=== PATIENT | male | born 1985 | race Caucasian/White ===

== ENCOUNTER → 2020-12-13 09:43 | Outpatient (REF) | payer OTHER, SELFPAY ==
--- NOTE | 2020-12-13 09:49 | CA_ITS ---
Acquisition Time: 2020-12-13 10:04:13 Total Exercise Time: 00:09:05 Test Indications: Chest Pain Medications: LISINOPRIL METFORMIN SIMVASTATIN JANUVIA TESTOSTERONE Protocol: PATRICIA Max HR: 171 BPM 91% of Pred: 186 BPM Max BP: 158/086 mmHG Max Work Load: 10.2 METS Exercise stress test with exercise 9 min 5 sec of Patricia protocol, without anginal symptoms, without arrythmia, with normotensive response to exercise, with T wave abnormality at baseline, with EKG changes that are equivocal for ischemia during exercise, recovery: horizontal ST with borderline depression/ T wave inversion inferiorly and V4-V6. Test reviewed with Dr Gómez. Message sent to Dr Maldonado. Recommend stress echocardiogram for further evaluation for ischemia. Referred By: Ashley Maldonado Overread By: PHI KRISHNAMURTHY
== END ==
LOC: HO.CARD 09:43
PROVIDERS: Visit Provider Internal Medicine
DX: R07.9 Chest pain, unspecified (principal)
CPT/HCPCS: 93017

== ENCOUNTER → 2021-01-27 10:51 | Outpatient (REF) | payer OTHER, SELFPAY ==
--- NOTE | 2021-01-27 10:54 | CA_ITS ---
Acquisition Time: 2021-01-27 10:52:14 Total Exercise Time: 00:09:16 Test Indications: Chest Pain Medications: LISINOPRIL METFORMIN SIMVASTATIN JANUVIA TESRTOSTERONE Protocol: PATRICIA Max HR: 171 BPM 91% of Pred: 186 BPM Max BP: 156/070 mmHG Max Work Load: 10.1 METS Exercise stress test with exercise 9 min 16 sec of Patricia protocol ( stage 3 held), without anginal symptoms, without arrythma, with normotensive response to exercise, with borderline EKG changes : horizontal ST with mild depression inferiorly and V3-V6 in setting of baseline T wave abnormality. Echo images obtained by [employer] at rest and immediately post peak exercise. Definity contrast used. Test reviewed with Dr Babcock. Referred By: Ashley Maldonado Overread By: PHI KRISHNAMURTHY
== END ==
LOC: HO.CARD 10:51
PROVIDERS: Visit Provider Internal Medicine
DX: R07.9 Chest pain, unspecified (principal)
CPT/HCPCS: 93350; Q9957

== ENCOUNTER 2021-08-11 09:38 | Outpatient (REF) | payer OTHER, SELFPAY ==
[2021-08-11 10:03] LABS: MANUAL DIFF FLAG NO
[2021-08-11 10:22] LABS: Basophils Percent Auto 0.5 % (0-2); Eosinophils Absolute Auto 0.2 X10*3/uL (0.0-0.4); Eosinophils Percent Auto 1.9 % (0-4); Hematocrit 42.6 % (42.0-52.0); Hemoglobin 14.2 g/dl (14.0-18.0); Imm Gran Abs Auto 0.02 X10*3/uL (0.00-0.03); Imm Gran Pct Auto 0.3 % (0.0-0.4); Lymphocytes Absolute Auto 2.6 X10*3/uL (1.2-4.9); Lymphocytes Percent Auto 32.2 % (20-40); Mean Corpuscular HGB Conc 33.3 g/dl (31.0-36.0); Mean Corpuscular Hemoglobin 29.6 pg (27.0-33.0); Mean Corpuscular Volume 88.9 fL (80.0-98.0); Mean Platelet Volume 10.3 fL (9.4-12.4); Monocytes Absolute Auto 0.6 X10*3/uL (0.1-1.2); Monocytes Percent Auto 8.1 % (2-11); Neutrophils Absolute Auto 4.5 x10*3/uL (2.0-8.3); Platelet Count 272 X10*3/uL (160-400); Red Blood Count 4.79 X10*6/uL (4.60-5.80); Red Cell Distribution Width 12.2 % (11.0-16.0); White Blood Count 7.9 X10*3/uL (4.8-10.8)
[2021-08-11 11:05] LABS: Alanine Aminotransferase 35 U/L (0-40); Albumin Level 4.6 g/dL (3.5-5.0); Alkaline Phosphatase 106 U/L (39-117); Anion Gap 13 (12-20); Aspartate Amino Transferase 29 U/L (5-37); Bilirubin Total 0.5 mg/dL (0.0-1.0); Blood Urea Nitrogen 9 mg/dL (9-16); Calcium 9.7 mg/dL (8.4-10.2); Carbon Dioxide 26 mmol/L (22-29); Chloride 104 mmol/L (96-108); Cholesterol 140 mg/dL; Estimated Glomerular Filt Rate > 60; Glucose Random 114 mg/dL (60-115); HDL Cholesterol 37 mg/dL; LDL Cholesterol Calculated 84 mg/dl; Potassium 5.1 mmol/L (3.3-5.1); Sodium 138 mmol/L (135-145); Total Protein 7.8 g/dL (6.5-8.0); Triglycerides 95 mg/dL
[2021-08-11 11:15] LABS: Creatinine Urine 150.19 mg/dL; Microalbum/Creatinine Ratio Ur 5.3 ug/mg cr
[2021-08-11 11:34] LABS: Free T4 (Free Thyroxine) 0.92 ng/dL (0.71-1.85); Thyroid Stimulating Hormone 1.24 uIU/mL (0.32-4.0)
[2021-08-11 11:45] LABS: Folate 18.6 ng/mL (> or = 4.0); Vitamin B12 219 pg/mL (200-900)
[2021-08-11 12:10] LABS: Vitamin D 25-OH Total 52.3 ng/mL (>30)
== END 2021-08-11 09:39 | disposition home or self-care (01) ==
LOC: HO.LAB 09:38
PROVIDERS: PCP Internal Medicine; Visit Provider Internal Medicine
DX: E11.65 Type 2 diabetes mellitus with hyperglycemia (principal); E78.00 Pure hypercholesterolemia, unspecified
CPT/HCPCS: 36415; 80053; 80061; 82043; 82306; 82607; 82746; 84439; 84443; 85025

== ENCOUNTER 2022-02-16 11:00 | Outpatient (RCR) | payer OTHER, SELFPAY ==
--- NOTE | 2022-01-19 14:05 | MHC.PT.EP ---
[facility] [place] [facility] [place] [facility] [place] [facility] [address] Gillian Kinney [address] [phone] F: [phone] F: [phone] F: [phone] F: [phone] Physical Therapy Plan of Care Date of Evaluation: Date of Surgery: Diagnosis: LBP Assessment: Patient presents with chronic LBP from poor posturing and positioning from repetitive bending and lifting at work. He presents with reduced lumbar and hip AROM, weakness in glutes and abdominals/core and exhibits poor body mechanics with squatting and lifting. He will benefit from skilled physical therapy involving manual therapy, therapeutic exercise and activities and education and practice of proper techniques to avoid further injury and reduce symptoms during work tasks. Frequency and Duration: The patient will be seen 1x/week for 4 weeks Short Term Goals: 2 weeks Patient presents with increased hip glute med strength 4+/5 Patient demonstrates proper squat/hip hinge technique independently to improve form with bending at work. Javascript Programmer Goals: 3 weeks Patient exhibits ability to perform 4 to waist lift 40lbs with proper body mechanics. Patient presents with increased abdominal/TA strength 5/5 to improve lumbar stabilization for lifting tasks. Treatment Plan: Modalities to reduce pain, spasms and effusion. Manual therapy to restore motion and function. Therapeutic exercise to improve strength and flexibility. Neuromuscular re-education for posture and balance. Therapeutic activities to return to functional activities of daily living. Electronically signed by: Chela Phillips PT Please sign and return to therapist. Thank you for your referral.
--- NOTE | 2022-03-21 14:45 | MHC.PT.DC ---
[facility] [place] [facility] [place] [facility] [place] [facility] [address] Gillian Kinney [address] [phone] F: [phone] F: [phone] F: [phone] F: [phone] Physical Therapy Discharge Report Diagnosis: LBP Date of Surgery: Date of Evaluation: 01/19/22 Date of Discharge: 03/21/22 Treatments to Date: 3 Cancellations to Date: 0 No Shows to Date: 0 Discharge Status: Independent with HEP Visit Non-compliance Discharge Summary: Pt did not f/u with final visits and has no showed last 3 visits. D/c at this time. Electronically signed by: Chela Phillips PT Please sign and return to therapist. Thank you for your referral.
== END 2022-03-21 14:45 | disposition home or self-care (01) ==
LOC: HO.PT 11:00
PROVIDERS: PCP Internal Medicine; Visit Provider Nurse Practitioner Family
DX: M54.50 Low back pain, unspecified (principal)
CPT/HCPCS: 97110; 97140; 97161; 97530

== ENCOUNTER 2022-07-26 09:43 | Outpatient (REF) | payer OTHER, SELFPAY ==
[2022-07-26 10:06] LABS: MANUAL DIFF FLAG NO
[2022-07-26 10:45] LABS: Basophils Percent Auto 0.6 % (0-2); Eosinophils Absolute Auto 0.1 X10*3/uL (0.0-0.4); Eosinophils Percent Auto 2.3 % (0-4); Hemoglobin 13.9 g/dl (14.0-18.0); Imm Gran Abs Auto 0.01 X10*3/uL (0.00-0.03); Imm Gran Pct Auto 0.2 % (0.0-0.4); Lymphocytes Absolute Auto 2.2 X10*3/uL (1.2-4.9); Lymphocytes Percent Auto 35.9 % (20-40); Mean Corpuscular HGB Conc 34.8 g/dl (31.0-36.0); Mean Corpuscular Hemoglobin 29.8 pg (27.0-33.0); Mean Corpuscular Volume 85.8 fL (80.0-98.0); Mean Platelet Volume 10.2 fL (9.4-12.4); Monocytes Absolute Auto 0.6 X10*3/uL (0.1-1.2); Monocytes Percent Auto 10.1 % (2-11); Neutrophils Absolute Auto 3.2 x10*3/uL (2.0-8.3); Neutrophils Percent Auto 50.9 % (45-73); Platelet Count 269 X10*3/uL (160-400); Red Blood Count 4.66 X10*6/uL (4.60-5.80); Red Cell Distribution Width 12.1 % (11.0-16.0); White Blood Count 6.2 X10*3/uL (4.8-10.8)
[2022-07-26 10:57] LABS: Estimated Average Glucose 128 mg/dL; Hemoglobin A1c % 6.1 %
[2022-07-26 12:04] LABS: Alanine Aminotransferase 20 U/L (0-40); Albumin Level 4.5 g/dL (3.5-5.0); Alkaline Phosphatase 111 U/L (39-117); Anion Gap 13 (12-20); Aspartate Amino Transferase 21 U/L (5-37); Blood Urea Nitrogen 10 mg/dL (9-16); Calcium 9.3 mg/dL (8.4-10.2); Carbon Dioxide 26 mmol/L (22-29); Chloride 104 mmol/L (96-108); Cholesterol 133 mg/dL; Estimated Glomerular Filt Rate > 60; Glucose Random 106 mg/dL (60-115); HDL Cholesterol 38 mg/dL; LDL Cholesterol Calculated 81 mg/dl; Potassium 4.5 mmol/L (3.3-5.1); Sodium 138 mmol/L (135-145); Total Protein 7.4 g/dL (6.5-8.0); Triglycerides 73 mg/dL
[2022-07-26 12:24] LABS: Folate 15.5 ng/mL (> or = 4.0); Free T4 (Free Thyroxine) 0.97 ng/dL (0.71-1.85); Thyroid Stimulating Hormone 0.97 uIU/mL (0.32-4.0); Vitamin B12 1441 pg/mL (200-900); Vitamin D 25-OH Total 50.3 ng/mL (>30)
[2022-07-26 15:05] LABS: Microalbum/Creatinine Ratio Ur 13.5 ug/mg cr
== END 2022-07-26 09:44 | disposition home or self-care (01) ==
LOC: HO.LAB 09:43
PROVIDERS: PCP Internal Medicine; Visit Provider Internal Medicine
DX: E11.65 Type 2 diabetes mellitus with hyperglycemia (principal); E78.00 Pure hypercholesterolemia, unspecified
CPT/HCPCS: 36415; 80053; 80061; 82043; 82306; 82607; 82746; 83036; 84439; 84443; 85025

== ENCOUNTER 2023-01-25 12:18 | Outpatient (AMB) | payer OTHER, SELFPAY ==
[2023-01-25 12:27] VITALS: BP 124/72; PULSE 92; O2SAT 98; BMI 27.8
--- NOTE | 2023-01-25 12:27 | A.OFFPC_ITS ---
Vital Signs 01/25/23 12:27 Height 4 ft 10 in Weight 133 lb BMI 27.8 BP 124/72 Blood Pressure Location Lt brachial Position Sitting Pulse 92 Pulse Source Pulse Oximeter Pulse Oximetry (%) 98 Oxygen Delivery Method Room Air Intake Visit Reasons: Annual PE Allergies No Known Allergies Allergy (Verified 01/25/23 12:28) Medication List - Last Reconciled 01/25/23 by Ashley Maldonado MD cholecalciferol (vitamin D3) 50 mcg PO DAILY lisinopril 2.5 mg PO DAILY metformin 500 mg PO BID multivitamin 1 tab PO DAILY simvastatin 40 mg PO BEDTIME testosterone 10 mg/0.5 gram /actuation 2 pumps transdermal QAM Tobacco use date assessed: 01/25/23 Dental Screening Dental Screen Date: 01/25/23 Did you have a dental visit in the last 12 months?: No Did you have a dental problem in the last 6 months where you did not have access to dental care?: No Was dental information given to patient?: No HPI Annual PE HPI Details 37-year-old female to male transgender overweight with controlled diabetes mellitus GERD hypercholesterolemia and generalized anxiety disorder last seen in July 2022 patient comes in for physical exam. video games feels nausea. eye exam reminded [facility] Medical History [id number] transgender person GERD (gastroesophageal reflux disease) Hypercholesterolemia Type 2 diabetes mellitus with hyperglycemia Vitamin D deficiency Surgical History History of breast surgery Family History (Updated 08/24/22 @ 10:53 by Samantha Mcfarland) Father Brain tumor Mother No problems noted. Maternal Grandmother Diabetes Maternal Grandfather Myocardial infarction Social History (Updated 01/25/23 @ 12:41 by Ashley Maldonado MD) Housing: Apartment Alcohol intake: current Patient Tobacco Use Status: Never used Tobacco e-Cigarette/Vaping Use: Never Used Second Hand Smoke Exposure: No service: No Current occupational status: employed Cognitive needs: No Hearing needs: No Vision needs: No Questionnaire PHQ-9 Over the last 2 weeks, how often have you been bothered by any of the following problems? 1. Little interest or pleasure in doing things: not at all 2. Feeling down, depressed, or hopeless: not at all 3. Trouble falling or staying asleep, or sleeping too much: not at all 4. Feeling tired or having little energy: not at all 5. Poor appetite or overeating: not at all 6. Feeling bad about yourself - or that you are a failure or have let yourself or your family down: not at all 7. Trouble concentrating on things, such as reading the newspaper or watching television: not at all 8. Moving or speaking so slowly that other people could have noticed. Or the opposite - being so fidgety or restless that you have been moving around a lot more than usual: not at all 9. Thoughts that you would be better off or of hurting yourself in some way: not at all Total score: 0 Depression Screening Interpretation: Negative Source: Developed by Drs. Eliu Hinkle, Harmony Gutierrez, Asif Junior and colleagues, with an educational jose from [employer]. Thrive Questionnaire Date Thrive assessed: 08/24/22 AUDIT C Alcohol Use Questionnaire (AUDIT-C) 1. How often do you have a drink containing alcohol?: Monthly or less 2. How many drinks containing alcohol do you have on a typical day when you are drinking?: 1 or 2 3. How often do you have six or more drinks on one occasion?: Never Total Score: 1 Score Reviewed/Action Taken: No PETE-7 AMB Questionnaire PETE-7 Date PETE - 7 assessed: 08/24/22 Source: Developed by Drs. Eliu Hinkle, Harmony Gutierrez, Asif Junior and colleagues, with an educational jose from [employer]. Review of Systems Const Denies poor appetite and Denies weakness Eyes Denies no additional complaints ENT Reports Normal hearing present, Denies dizziness, Denies nasal congestion, Denies tinnitus and Denies sore throat Card Denies chest pain, Denies syncope, Denies rapid heart rate and Denies dyspnea Resp Denies cough and Denies dyspnea GI Denies change in stool character, Reports constipation, Denies diarrhea, Denies nausea and Denies vomiting Denies dysuria and Denies urinary frequency Neuro Reports Normal hearing present, Denies confusion, Denies dizziness, Denies syncope and Denies weakness Psych Denies confusion Physical exam (Primary Care) Vital Signs: Last Vital Signs Pulse 92 08/31/23 12:27 BP 124/72 01/25/23 12:27 Pulse Ox 98 01/25/23 12:27 Oxygen Delivery Method Room Air 01/25/23 12:27 BMI result Body Mass Index 27.8 Tobacco/Smoking Status: Tobacco use Status Tobacco use date assessed 01/25/23 01/25/23 12:28 Patient Tobacco Use Status Never used Tobacco 01/25/23 12:41 e-Cigarette/Vaping Use Never Used 01/25/23 12:41 PHQ-9: PHQ-9 Score PHQ-9: Total score 0 01/25/23 12:37 Depression Screening Interpretation: Negative Thrive Assessment: Date of Thrive Assessment Date Thrive assessed 08/24/22 01/25/23 12:28 Const General: No confusion Orientation/consciousness: No confusion HENMT Head: Yes normocephalic Ears: external ears normal and TM's normal bilaterally Face and sinus: Yes normal facial exam Mouth: moist mucous membranes Throat: Yes tonsils normal Eyes Conjunctivae: conjunctivae normal Pupils: Equal, round and reactive pupils present and Pupil accommodation reflex normal Direct Ophthalmoscopy: normal light reflex Neck Neck: No lymphadenopathy Thyroid: Thyroid normal Chest Chest palpation & inspection: normal inspection of the chest Resp Effort & Inspection: normal respiratory effort and no audible wheezes Auscultation: clear to auscultation bilaterally, no crackles, no wheezes and lung sounds not diminished Cardio Rate: regular rate Rhythm: regular rhythm Peripheral pulses: radial pulses present and dorsalis pedis present GI Palpation (GI): no masses Auscultation: normal bowel sounds and normoactive bowel sounds Rectal Exam - Male: Yes deferred Skin General skin exam: no rashes or lesions noted Rashes: no rashes Neuro General: No confusion Cranial nerves: Yes Equal, round and reactive pupils present and Yes Normal hearing present Cognition (Neuro): normal cognition Gait exam (Neuro): Normal gait present Motor exam (neuro): 5/5 motor strength present throughout Deep tendon reflexes (DTR's): Right brachioradialis reflex intensity grade: 2+, Left brachioradialis reflex intensity grade: 2+, Right patellar reflex intensity grade: 2+ and Left patellar reflex intensity grade: 2+ Extrem General: No edema Results AMB Hemoglobin A1c AMB Hemoglobin A1c 5.8 % Last Edit by Ramona Camacho CMA on 01/25/23 12 :52 Assessment and Plan Assessment & Plan (1) Annual physical exam: Code(s): Z00.00 - Encounter for general adult medical examination without abnormal findings (2) Type 2 diabetes mellitus with hyperglycemia: Code(s): E11.65 - Type 2 diabetes mellitus with hyperglycemia Qualifiers: Diabetes mellitus moth exterminator insulin use: without residential use Qualif ied Code(s): E11.65 - Type 2 diabetes mellitus with hyperglycemia Plan: Decrease the amount of carbohydrate intake, pasta, bread, rice and potatoes are all sugar and that is aside from all the sweet stuff, remember that fruits are good but they are Sweet also. Hemoglobin A1c goal of less than 6.5 patient has been under control on metformin 500 twice a day (3) Hypercholesterolemia: Code(s): E78.00 - Pure hypercholesterolemia, unspecified Plan: Avoid fried foods, chicken skin, eggs, butter margarine, pastries and meat. Be it pork or beef they have a lot of cholesterol LDL goal of less than 100 patient is on simvastatin 40 mg once a day (4) Dghkyc-eq-sxuc transgender person: Comment: [facility] Endocrinology testosterone 02/2016 Code(s): F64.0 - Transsexualism (5) GERD (gastroesophageal reflux disease): Code(s): K21.9 - Gastro-esophageal reflux disease without esophagitis Qualifiers: Esophagitis presence: without esophagitis Qualified Code(s): K21.9 - Gastro-esophageal reflux disease without esophagitis Plan: Avoid the foods that causes that usually spicy foods, tomato products, juices, coffee, soda and foods that your sensitive to. After eating do not lie down, allow 3-4 hours before in lie down. And keep the head of bed above 30 degrees to avoid the acid from going up. (6) Overweight (BMI 25.0-29.9): Code(s): E66.3 - Overweight Plan: Diet and exercise Orders: Orders Vitamin B12 and Folate 6 Months .65 - Type 2 diabetes mellitus with hy perglycemia Comprehensive Met. Panel 6 Months . - Type 2 diabetes mellitus with hyperglycemia Ferritin 6 Months E11.65 - Type 2 diabetes mellitus with hyperglycemia Hemoglobin A1c 6 Months E11.65 - Type 2 diabetes mellitus with hyperglycemia IRON PROFILE 6 Months E11.65 - Type 2 diabetes mellitus with hyperglycemia Lipid Panel 6 Months E11.65 - Type 2 diabetes mellitus with hyperglycemia, E78.00 - Pure hypercholesterolemia, unspecified Free T4 (Free Thyroxine) 6 Months E11.65 - Type 2 diabetes mellitus with hyperglycemia Thyroid Stimulating Hormone 6 Months E11.65 - Type 2 diabetes mellitus with hyp erglycemia Vitamin D 25-OH Total 6 Months E11.65 - Type 2 diabetes mellitus with hyperglycemia Creatinine Urine 6 Months E11.65 - Type 2 diabetes mellitus with hyperglycemia Microalbumin, Random (w Creat) 6 Months E11.65 - Type 2 diabetes mellitus with hyperglycemia Complete Blood Count Auto Diff 6 Months E11.65 - Type 2 diabetes mellitus with hyperglycemia Reticulocyte Count 6 Months E11.65 - Type 2 diabetes mellitus with hyperglycemia AMB Hemoglobin A1c Today Z13.9 - Encounter for screening, unspecified Medications: Refilled metformin 500 mg PO BID 180 tabs 3RF E11.65 - Type 2 diabetes mellitus with hyperglycemia lisinopril 2.5 mg PO DAILY 90 tabs 3RF E11.65 - Type 2 diabetes mellitus with hyperglycemia Coding Level of Care Code Est Pt Prev Care 18-39y([id number]) Diagnoses Annual physical exam Z00.00 Type 2 diabetes mellitus with hyperglycemia E11.65 Diabetes mellitus moth exterminator insulin use: without residential use Hypercholesterolemia E78.00 Euylfx-wg-yrhg transgender person F64.0 GERD (gastroesophageal reflux disease) K21.9 Esophagitis presence: without esophagitis Overweight (BMI 25.0-29.9) E66.3 Additional Codes PHQ-9 - 95884 - PHQ-9 Billing: Y ([id number])
== END 2023-01-25 13:07 | disposition home or self-care (01) ==
PROVIDERS: Visit Provider Internal Medicine
DX: Z00.00 Encounter for general adult medical examination without abnormal findings (principal); F64.0 Transsexualism; K21.9 Gastro-esophageal reflux disease without esophagitis; E11.65 Type 2 diabetes mellitus with hyperglycemia; E78.00 Pure hypercholesterolemia, unspecified; E66.3 Overweight
CPT/HCPCS: 83036; 99395

== ENCOUNTER 2023-08-02 12:40 | Outpatient (AMB) | payer OTHER, SELFPAY ==
[2023-08-02 12:44] VITALS: BP 112/70; PULSE 79; O2SAT 100; BMI 28.2
--- NOTE | 2023-08-02 12:44 | A.OFFPC_ITS ---
Vital Signs 08/02/23 12:44 Height 4 ft 10 in Weight 135 lb BMI 28.2 BP 112/70 Blood Pressure Location Lt brachial Position Sitting Pulse 79 Pulse Source Pulse Oximeter Temp Source Skin Pulse Oximetry (%) 100 Oxygen Delivery Method Room Air Intake Visit Reasons: DM Allergies No Known Allergies Allergy (Verified 08/02/23 12:48) Medication List - Last Reconciled 08/02/23 by Ashley Maldonado MD cholecalciferol (vitamin D3) 50 mcg PO DAILY lisinopril 2.5 mg PO DAILY metformin 500 mg PO BID multivitamin 1 tab PO DAILY simvastatin 40 mg PO BEDTIME testosterone 10 mg/0.5 gram /actuation 2 pumps transdermal QAM Tobacco use date assessed: 08/02/23 HPI DM HPI Details 38-year-old overweight transgender male with a history of diabetes mellitus controlled GERD hypercholesterolemia generalized anxiety disorder coming in for follow-up. Last seen in December 2022. Patient is up-to-date with the eye exam May 2023 patient also has followed with endocrinology under Dr. Garcia on testosterone has been since 2016 contemplating hysterectomy and oophorectomy on 4 pumps of testosterone question of switching to IM PFSH Medical History Xuvjzn-um-plbj transgender person GERD (gastroesophageal reflux disease) Hypercholesterolemia Type 2 diabetes mellitus with hyperglycemia Vitamin D deficiency Surgical History History of breast surgery Family History (Updated 08/24/22 @ 10:53 by Samantha Mcfarland) Father Brain tumor Mother No problems noted. Maternal Grandmother Diabetes Maternal Grandfather Myocardial infarction Social History (Updated 01/25/23 @ 12:41 by Ashley Maldonado MD) Housing: Apartment Alcohol intake: current Patient Tobacco Use Status: Never used Tobacco e-Cigarette/Vaping Use: Never Used Second Hand Smoke Exposure: No service: No Current occupational status: employed Cognitive needs: No Hearing needs: No Vision needs: No Questionnaire Thrive Questionnaire Date Thrive assessed: 08/24/22 AUDIT C Alcohol Use Questionnaire (AUDIT-C) 1. How often do you have a drink containing alcohol?: Monthly or less 2. How many drinks containing alcohol do you have on a typical day when you are drinking?: 1 or 2 3. How often do you have six or more drinks on one occasion?: Never Total Score: 1 Score Reviewed/Action Taken: No PETE-7 AMB Questionnaire PETE-7 Date PETE - 7 assessed: 08/02/23 Source: Developed by Drs. Eliu Hinkle, Harmony Gutierrez, Asif Junior and colleagues, with an educational jose from [employer]. Physical exam (Primary Care) Vital Signs: Last Vital Signs Pulse 79 08/02/23 12:44 BP 112/70 08/02/23 12:44 Pulse Ox 100 08/02/23 12:44 Oxygen Delivery Method Room Air 08/02/23 12:44 BMI result Body Mass Index 28.2 Tobacco/Smoking Status: Tobacco use Status Tobacco use date assessed 08/02/23 08/02/23 12:49 Patient Tobacco Use Status Never used Tobacco 08/02/23 12:49 e-Cigarette/Vaping Use Never Used 08/02/23 12:49 Thrive Assessment: Date of Thrive Assessment Date Thrive assessed 08/24/22 08/02/23 12:49 Const General: alert; No acute distress Eyes Conjunctivae: conjunctivae normal Resp Auscultation: clear to auscultation bilaterally Cardio Rate: regular rate Rhythm: regular rhythm GI Inspection: Yes normal to inspection Extrem General: Yes normal to inspection and No edema Results AMB Hemoglobin A1c AMB Hemoglobin A1c 6.5 % Last Edit by ANA MARIA Hanks on 08/02/23 12:53 Immunizations Boostrix Tdap 2.5 Lf unit-8 mcg-5 Lf/0.5 mL intramuscular syringe Performing Provider: Ashley Maldonado MD [facility] Administered by: Samantha Mcfarland on 08/02/23 13:24 Dose Route Admin Location Dispensed Lot Number Expiration Date [employer] Att[employer] 0.5 mL IM Left Deltoid 0.5 mL [id number] 09/29/25 [id number] [employer] VIS Given Date VIS Provided VIS Publication Date 08/02/23 Single Vaccine 20 Eligibility Eligibility Date Funding Source Not VFC Eligible 08/02/23 Private Results Reviewed Results Reviewed: Laboratory Last Values Hgb A1c (Clinic) 6.5 % (4.0-6.0) H 08/02/23 12:52 Assessment and Plan Assessment & Plan (1) Lizwhw-hj-krdf transgender person: Comment: [facility] Endocrinology testosterone 02/2016 Code(s): F64.0 - Transsexualism Plan: Patient continues to follow-up with endocrinology and receives testosterone pump 4 pumps a day (2) Overweight (BMI 25.0-29.9): Code(s): E66.3 - Overweight Plan: Diet and exercise (3) Type 2 diabetes mellitus with hyperglycemia: Code(s): E11.65 - Type 2 diabetes mellitus with hyperglycemia Qualifiers: Diabetes mellitus senior living insulin use: without senior living use Qualified Code(s): E11.65 - Type 2 diabetes mellitus with hyperglycemia Plan: Decrease the amount of carbohydrate intake, pasta, bread, rice and potatoes are all sugar and that is aside from all the sweet stuff, remember that fruits are good but they are Sweet also. Hemoglobin A1c goal of less than 6.5. Patient on metformin 500 mg twice a day (4) Hypercholesterolemia: Code(s): E78.00 - Pure hypercholesterolemia, unspecified Plan: Avoid fried foods, chicken skin, eggs, butter margarine, pastries and meat. Be it pork or beef they have a lot of cholesterol LDL goal of less than 100 and triglyceride of less than 150 on simvastatin 40 mg at bedtime and need to have blood work done (5) Generalized anxiety disorder: Code(s): F41.1 - Generalized anxiety disorder Plan: Stable Orders: Orders AMB Hemoglobin A1c Today E11.65 - Type 2 diabetes mellitus with hyperglycemia TDaP Immunization Today Z23 - Encounter for immunization Coding Level of Care Code Est Pt Level 4 (71852) Diagnoses Hweqwi-cf-stmr transgender person F64.0 Overweight (BMI 25.0-29.9) E66.3 Type 2 diabetes mellitus with hyperglycemia, without long-term current use of insulin E11.65 Diabetes mellitus senior living insulin use: without termite inspector use Hypercholesterolemia E78.00 Generalized anxiety disorder F41.1
== END 2023-08-02 13:32 | disposition home or self-care (01) ==
PROVIDERS: PCP Internal Medicine; Visit Provider Internal Medicine
DX: F64.0 Transsexualism (principal); E66.3 Overweight; E11.65 Type 2 diabetes mellitus with hyperglycemia; E78.00 Pure hypercholesterolemia, unspecified; F41.1 Generalized anxiety disorder; Z23 Encounter for immunization
CPT/HCPCS: 83036; 90471; 90715; 99214

== ENCOUNTER 2023-08-07 09:29 | Outpatient (REF) | payer OTHER, SELFPAY ==
[2023-08-07 09:48] LABS: MANUAL DIFF FLAG NO
[2023-08-07 10:00] LABS: Basophils Percent Auto 0.8 % (0-2); Eosinophils Absolute Auto 0.1 X10*3/uL (0.0-0.4); Eosinophils Percent Auto 2.5 % (0-4); Hematocrit 37.7 % (42.0-52.0); Hemoglobin 13.1 g/dl (14.0-18.0); Imm Gran Abs Auto 0.01 X10*3/uL (0.00-0.03); Imm Gran Pct Auto 0.2 % (0.0-0.4); Immature Retic Fraction 5.1 % (2.3-13.4); Lymphocytes Absolute Auto 1.8 X10*3/uL (1.2-4.9); Lymphocytes Percent Auto 35.5 % (20-40); Mean Corpuscular HGB Conc 34.7 g/dl (31.0-36.0); Mean Corpuscular Hemoglobin 30.3 pg (27.0-33.0); Mean Corpuscular Volume 87.3 fL (80.0-98.0); Mean Platelet Volume 10.1 fL (9.4-12.4); Monocytes Absolute Auto 0.5 X10*3/uL (0.1-1.2); Monocytes Percent Auto 9.4 % (2-11); Neutrophils Absolute Auto 2.6 x10*3/uL (2.0-8.3); Neutrophils Percent Auto 51.6 % (45-73); Platelet Count 265 X10*3/uL (160-400); Red Blood Count 4.32 X10*6/uL (4.60-5.80); Red Cell Distribution Width 12.3 % (11.0-16.0); Reticulocytes Absolute 0.088 X10*6/uL (0.026-0.095); White Blood Count 5.1 X10*3/uL (4.8-10.8)
[2023-08-07 10:06] LABS: Estimated Average Glucose 126 mg/dL
[2023-08-07 10:25] LABS: Alanine Aminotransferase 23 U/L (0-40); Albumin Level 4.4 g/dL (3.5-5.0); Alkaline Phosphatase 126 U/L (39-117); Anion Gap 12 (12-20); Aspartate Amino Transferase 27 U/L (5-37); Bilirubin Total 0.8 mg/dL (0.0-1.0); Blood Urea Nitrogen 11 mg/dL (9-16); Calcium 9.4 mg/dL (8.4-10.2); Carbon Dioxide 27 mmol/L (22-29); Chloride 105 mmol/L (96-108); Cholesterol 131 mg/dL (<200); Estimated Glomerular Filt Rate > 60; Glucose Random 110 mg/dL (60-115); HDL Cholesterol 42 mg/dL (>40); Iron 128 mcg/dL (45-160); LDL Cholesterol Calculated 74 mg/dL (<100); Percent Iron Saturation 45 % (15-50); Potassium 3.6 mmol/L (3.3-5.1); Sodium 140 mmol/L (135-145); Total Iron Binding Capacity 286 mcg/dL (228-428); Total Protein 7.7 g/dL (6.5-8.0); Triglycerides 76 mg/dL (<150); Unsaturated Iron Binding 158 ug/dL
[2023-08-07 10:44] LABS: Ferritin 253 ng/mL (20-250); Free T4 (Free Thyroxine) 0.92 ng/dL (0.71-1.85); Thyroid Stimulating Hormone 1.23 uIU/mL (0.32-4.0); Vitamin D 25-OH Total 71.2 ng/mL (>30)
[2023-08-07 10:55] LABS: Creatinine Urine 215.58 mg/dL; Microalbum/Creatinine Ratio Ur 6.9 ug/mg cr (<30)
[2023-08-07 11:20] LABS: Folate 15.7 ng/mL (> or = 4.0); Vitamin B12 409 pg/mL (200-900)
== END 2023-08-07 09:30 | disposition home or self-care (01) ==
LOC: HO.LAB 09:29
PROVIDERS: PCP Internal Medicine; Visit Provider Internal Medicine
DX: E11.65 Type 2 diabetes mellitus with hyperglycemia (principal); E78.00 Pure hypercholesterolemia, unspecified
CPT/HCPCS: 36415; 80053; 80061; 82043; 82306; 82570; 82607; 82728; 82746; 83036; 83540; 84439; 84443; 85025; 85045

== ENCOUNTER 2023-11-08 13:28 | Outpatient (AMB) | payer OTHER, SELFPAY ==
[2023-11-08 13:29] VITALS: BP 108/62; PULSE 80; O2SAT 98; BMI 27.8
--- NOTE | 2023-11-08 13:29 | A.OFFPC_ITS ---
Vital Signs 11/08/23 13:29 Height 4 ft 10 in Weight 133 lb BMI 27.8 BP 108/62 Blood Pressure Location Lt brachial Position Sitting Pulse 80 Pulse Source Pulse Oximeter Pulse Oximetry (%) 98 Oxygen Delivery Method Room Air Intake Visit Reasons: DM Allergies No Known Allergies Allergy (Verified 11/08/23 13:30) Tobacco use date assessed: 08/02/23 Dental Screening Dental Screen Date: 11/08/23 Did you have a dental visit in the last 12 months?: Yes Did you have a dental problem in the last 6 months where you did not have access to dental care?: No Was dental information given to patient?: Patient has dentist HPI DM HPI Details 38-year-old overweight transgender femal e to male with controlled diabetes mellitus hypercholesterolemia and generalized anxiety disorder coming in for follow-up. Last seen in 08/15/2023. Review of the notes had total abdominal hysterectomy with bilateral salpingo-oophorectomy 09/15/[address] Dhaliwal. Patient comes in for follow-up [facility] Medical History (Updated 11/08/23 @ 13:58 by Ashley Maldonado MD) Type 2 diabetes mellitus with hyperglycemia Hypercholesterolemia Vitamin D deficiency Hakqwr-iz-iqjf transgender person GERD (gastroesophageal reflux disease) Surgical History History of breast surgery Family History (Updated 08/24/22 @ 10:53 by ANA MARIA Glaser) Father Brain tumor Mother No problems noted. Maternal Grandmother Diabetes Maternal Grandfather Myocardial infarction Social History (Updated 01/25/23 @ 12:41 by Ashley Maldonado MD) Housing: Apartment Alcohol intake: current Patient Tobacco Use Status: Never used Tobacco e-Cigarette/Vaping Use: Never Used Second Hand Smoke Exposure: No service: No Current occupational status: employed Cognitive needs: No Hearing needs: No Vision needs: No Questionnaire PHQ-9 Over the last 2 weeks, how often have you been bothered by any of the following problems? 1. Little interest or pleasure in doing things: not at all 2. Feeling down, depressed, or hopeless: not at all 3. Trouble falling or staying asleep, or sleeping too much: not at all 4. Feeling tired or having little energy: not at all 5. Poor appetite or overeating: not at all 6. Feeling bad about yourself - or that you are a failure or have let yourself or your family down: not at all 7. Trouble concentrating on things, such as reading the newspaper or watching television: not at all 8. Moving or speaking so slowly that other people could have noticed. Or the opposite - being so fidgety or restless that you have been moving around a lot more than usual: not at all 9. Thoughts that you would be better off or of hurting yourself in some way: not at all Total score: 0 Depression Screening Interpretation: Negative Depression Screening Done: Yes Source: Developed by Drs. Eliu Hinkle, Harmony Gutierrez, Asif Junior and colleagues, with an educational jose from [employer]. Thrive Questionnaire Date Thrive assessed: 11/08/23 I am a: Patient What is your living situation today?: I have a steady place to live Within the past 12 months, did the food you bought not last and you didn't have the money to get more?: Never true Within the past 12 months, did you worry whether your food would run out before you got money to buy more?: Never true Do you have trouble paying for medicines?: No Do you have trouble getting transportation to medical appointments?: No Do you have trouble paying your heating and electricity bill?: No Do you have trouble taking care of your child, family member or friend?: No Do you have trouble with day-to-day activities such as bathing, preparing meals, shopping, managing finances, etc.?: No Are you currently unemployed and looking for a job?: No Are you interested in more education?: No Currently or been in a relationship where the following occur: no concerns reported THRIVE Score: 0 AUDIT C Alcohol Use Questionnaire (AUDIT-C) 1. How often do you have a drink containing alcohol?: Monthly or less 2. How many drinks containing alcohol do you have on a typical day when you are drinking?: 1 or 2 3. How often do you have six or more drinks on one occasion?: Never Total Score: 1 Score Reviewed/Action Taken: No PETE-7 AMB Questionnaire PETE-7 Date PETE - 7 assessed: 08/02/23 Source: Developed by Drs. Eliu LHarmony Blum Kurt Kroenke and colleagues, with an educational jose from [employer]. Physical exam (Primary Care) Vital Signs: Last Vital Signs Pulse 80 11/08/23 13:29 BP 108/62 11/08/23 13:29 Pulse Ox 98 11/08/23 13:29 Oxygen Delivery Method Room Air 11/08/23 13:29 BMI result Body Mass Index 27.8 Tobacco/Smoking Status: Tobacco use Status Tobacco use date assessed 08/02/23 11/08/23 13:33 Patient Tobacco Use Status Never used Tobacco 11/08/23 13:33 e-Cigarette/Vaping Use Never Used 11/08/23 13:33 PHQ-9: PHQ-9 Score PHQ-9: Total score 0 11/08/23 13:56 Depression Screening Interpretation: Negative Thrive Assessment: Date of Thrive Assessment Date Thrive assessed 11/08/23 11/08/23 13:33 Currently or been in a relationship where the following occur: no concerns r eported Const General: alert; No acute distress Eyes Conjunctivae: conjunctivae normal Resp Auscultation: clear to auscultation bilaterally Cardio Rate: regular rate Rhythm: regular rhythm GI Inspection: Yes normal to inspection Extrem General: Yes normal to inspection and No edema Results AMB Hemoglobin A1c AMB Hemoglobin A1c 6.6 % Last Edit by Ramona Camacho CMA on 11/08/23 13 :56 Results Reviewed Results Reviewed: Laboratory Last Values Hgb A1c (Clinic) 6.6 % (4.0-6.0) H 11/08/23 13:35 Assessment and Plan Assessment & Plan (1) Dfumtf-es-ktse transgender person: Comment: [facility] Endocrinology testosterone 02/2016 [facility] 08/2023 Dr. Dhaliwal Code(s): F64.0 - Transsexualism Plan: Status post TAHBSO August 2023 (2) Type 2 diabetes mellitus with hyperglycemia: Comment: Armando 05/2023 Code(s): E11.65 - Type 2 diabetes mellitus with hyperglycemia Qualifiers: Diabetes mellitus superintendent container terminal insulin use: without detention use Qualified Code(s): E11.65 - Type 2 diabetes mellitus with hyperglycemia Plan: Decrease the amount of carbohydrate intake, pasta, bread, rice and potatoes are all sugar and that is aside from all the sweet stuff, remember that fruits are good but they are Sweet also. Hemoglobin A1c goal of less than 6.5 on metformin 500 mg twice a day (3) Hypercholesterolemia: Code(s): E78.00 - Pure hypercholesterolemia, unspecified Plan: Avoid fried foods, chicken skin, eggs, butter margarine, pastries and meat. Be it pork or beef they have a lot of cholesterol simvastatin 40 mg at bedtime LDL goal of less than 100 and triglyceride of less than 150 last blood work 07/2023 (4) Overweight (BMI 25.0-29.9): Code(s): E66.3 - Overweight Plan: Continue with diet and exercise (5) Generalized anxiety disorder: Code(s): F41.1 - Generalized anxiety disorder Plan: Stable Orders: Orders AMB Hemoglobin A1c Today Z13.9 - Encounter for screening, unspecified Coding Level of Care Code Est Pt Level 4 (92918) Diagnoses Dfgexx-zi-erts transgender person F64.0 Type 2 diabetes mellitus with hyperglycemia, without long-term current use of insulin E11.65 Diabetes mellitus superintendent container terminal insulin use: without superintendent container terminal use Hypercholesterolemia E78.00 Overweight (BMI 25.0-29.9) E66.3 Generalized anxiety disorder F41.1 Additional Codes PHQ-9 - 32127 - PHQ-9 Billing: ([id number])
== END 2023-11-08 14:05 | disposition home or self-care (01) ==
PROVIDERS: PCP Internal Medicine; Visit Provider Internal Medicine
DX: F64.0 Transsexualism (principal); E11.65 Type 2 diabetes mellitus with hyperglycemia; E78.00 Pure hypercholesterolemia, unspecified; E66.3 Overweight; F41.1 Generalized anxiety disorder
CPT/HCPCS: 83036; 99214

== ENCOUNTER 2024-02-07 13:32 | Outpatient (AMB) | payer OTHER, SELFPAY ==
--- NOTE | 2024-02-07 13:35 | MHC.PC.OV ---
Vital Signs 02/07/24 13:36 Height 4 ft 10 in Weight 132 lb 4 oz BMI 27.6 BP 100/76 Blood Pressure Location Lt brachial Position Sitting Pulse 78 Pulse Source Pulse Oximeter Pulse Oximetry (%) 98 Oxygen Delivery Method Room Air Intake Visit Reasons: Annual exam Sexer Required: No Accompanied by: Self / Same As Patient Allergies No Known Allergies Allergy (Verified 02/07/24 13:36) Medication List - Last Reconciled 02/07/24 by Ashley Maldonado MD cholecalciferol (vitamin D3) 50 mcg PO DAILY lisinopril 2.5 mg PO DAILY metformin 500 mg PO BID multivitamin 1 tab PO DAILY simvastatin 40 mg PO BEDTIME testosterone 10 mg/0.5 gram /actuation 2 pumps transdermal QAM Tobacco use date assessed: 02/07/24 Dental Screening Dental Screen Date: 02/07/24 Did you have a dental visit in the last 12 months?: No Did you have a dental problem in the last 6 months where you did not have access to dental care?: No Was dental information given to patient?: No HPI Annual exam HPI Details 38 year old transgender(female to male) coming in for physical exam last seen in October 2023. Patient has diabetes mellitus hypercholesterolemia generalized anxiety disorder.concern on PETE hx of TAHBSO recently) patient asking for a jury duty letter [facility] Medical History (Updated 02/07/24 @ 13:43 by Ashley Maldonado MD) Type 2 diabetes mellitus with hyperglycemia Hypercholesterolemia Vitamin D deficiency Ffuqvj-pb-uoyg transgender person GERD (gastroesophageal reflux disease) Surgical History (Updated 02/07/24 @ 13:43 by Ashley Maldonado MD) FH: JOELLE-BSO (total abdominal hysterectomy and bilateral salpingo-oophorectomy) History of breast surgery Family History Father Brain tumor Mother No problems noted. Maternal Grandmother Diabetes Maternal Grandfather Myocardial infarction Social History (Updated 02/07/24 @ 13:47 by Ashley Maldonado MD) Housing: Apartment Alcohol intake: current Comment: once a month 1-2 drinks Patient Tobacco Use Status: Never used Tobacco e-Cigarette/Vaping Use: Never Used Second Hand Smoke Exposure: No service: No Current occupational status: employed Cognitive needs: No Hearing needs: No Vision needs: No Questionnaire PHQ-9 Over the last 2 weeks, how often have you been bothered by any of the following problems? 1. Little interest or pleasure in doing things: more than half the days 2. Feeling down, depressed, or hopeless: more than half the days 3. Trouble falling or staying asleep, or sleeping too much: more than half the days 4. Feeling tired or having little energy: more than half the days 5. Poor appetite or overeating: not at all 6. Feeling bad about yourself - or that you are a failure or have let yourself or your family down: more than half the days 7. Trouble concentrating on things, such as reading the newspaper or watching television: several days 8. Moving or speaking so slowly that other people could have noticed. Or the opposite - being so fidgety or restless that you have been moving around a lot more than usual: several days 9. Thoughts that you would be better off or of hurting yourself in some way: not at all Total score: 12 Source: Developed by Drs. Eliu Hinkle, Harmony Gutierrez, Asif Junior and colleagues, with an educational jose from [employer]. Thrive Questionnaire Date Thrive assessed: 02/07/24 I am a: Patient What is your living situation today?: I have a steady place to live Within the past 12 months, did the food you bought not last and you didn't have the money to get more?: I choose not to answer this question Within the past 12 months, did you worry whether your food would run out before you got money to buy more?: I choose not to answer this question Do you have trouble paying for medicines?: No Do you have trouble getting transportation to medical appointments?: No Do you have trouble paying your heating and electricity bill?: No Do you have trouble taking care of your child, family member or friend?: No Do you have trouble with day-to-day activities such as bathing, preparing meals, shopping, managing finances, etc.?: No Are you currently unemployed and looking for a job?: No Are you interested in more education?: I choose not to answer this question Please select the resources that you would like help with: None Currently or been in a relationship where the following occur: I choose not to answer THRIVE Score: 0 AUDIT C Alcohol Use Questionnaire (AUDIT-C) 1. How often do you have a drink containing alcohol?: Monthly or less 2. How many drinks containing alcohol do you have on a typical day when you are drinking?: 1 or 2 3. How often do you have six or more drinks on one occasion?: Never Total Score: 1 PETE-7 AMB Questionnaire PETE-7 Date PETE - 7 assessed: 02/07/24 Feeling nervous, anxious, or on edge: 3 = Nearly every day Not being able to stop or control worryin = Nearly every day Worrying too much about different things: 3 = Nearly every day Trouble relaxin = More than half the days Being so restless that it is hard to sit still: 0 = Not at all Becoming easily annoyed or irritable: 1 = Several days Feeling afraid as if something awful might happen: 1 = Several days Total PETE-7 score (0-4 normal; 5-9 mild; 10-14 moderate; 15-21 severe): 13 Source: Developed by Drs. Eliu Hinkle, Harmony Gutierrez, Asif Junior and colleagues, with an educational jose from [employer]. Review of Systems Const Denies poor appetite and Denies weakness Eyes Denies no additional complaints ENT Reports Normal hearing present, Denies dizziness, Denies nasal congestion, Denies tinnitus and Denies sore throat Card Denies chest pain, Denies syncope, Denies rapid heart rate and Denies dyspnea Resp Denies cough and Denies dyspnea GI Denies change in stool character, Reports constipation, Denies diarrhea, Denies nausea and Denies vomiting Denies dysuria and Denies urinary frequency Neuro Reports Normal hearing present, Denies confusion, Denies dizziness, Denies syncope and Denies weakness Psych Denies confusion Physical exam (Primary Care) Vital Signs: Last Vital Signs Pulse 78 02/07/24 13:36 BP 100/76 02/07/24 13:36 Pulse Ox 98 02/07/24 13:36 Oxygen Delivery Method Room Air 02/07/24 13:36 BMI result Body Mass Index 27.6 Tobacco/Smoking Status: Tobacco use Status Tobacco use date assessed 02/07/24 02/07/24 13:42 Patient Tobacco Use Status Never used Tobacco 02/07/24 13:47 e-Cigarette/Vaping Use Never Used 02/07/24 13:47 PHQ-9: PHQ-9 Score PHQ-9: Total score 12 02/07/24 13:42 Thrive Assessment: Date of Thrive Assessment Date Thrive assessed 02/07/24 02/07/24 13:42 Currently or been in a relationship where the following occur: I choose not to answer Const General: No confusion Orientation/consciousness: No confusion HENMT Head: Yes normocephalic Ears: external ears normal and TM's normal bilaterally Face and sinus: Yes normal facial exam Mouth: moist mucous membranes Throat: Yes tonsils normal Eyes Conjunctivae: conjunctivae normal Pupils: Equal, round and reactive pupils present and Pupil accommodation reflex normal Direct Ophthalmoscopy: normal light reflex Neck Neck: No lymphadenopathy Thyroid: Thyroid normal Chest Chest palpation & inspection: normal inspection of the chest Resp Effort & Inspection: normal respiratory effort and no audible wheezes Auscultation: clear to auscultation bilaterally, no crackles, no wheezes and lung sounds not diminished Cardio Rate: regular rate Rhythm: regular rhythm Peripheral pulses: radial pulses present and dorsalis pedis present GI Palpation (GI): no masses Auscultation: normal bowel sounds and normoactive bowel sounds Rectal Exam - Male: Yes deferred Skin General skin exam: no rashes or lesions noted Rashes: no rashes Neuro General: No confusion Cranial nerves: Yes Equal, round and reactive pupils present and Yes Normal hearing present Cognition (Neuro): normal cognition Gait exam (Neuro): Normal gait present Motor exam (neuro): 5/5 motor strength present throughout Deep tendon reflexes (DTR's): Right brachioradialis reflex intensity grade: 2+, Left brachioradialis reflex intensity grade: 2+, Right patellar reflex intensity grade: 2+ and Left patellar reflex intensity grade: 2+ Extrem General: No edema Results AMB Hemoglobin A1c AMB Hemoglobin A1c 6.5 % Last Edit by ANA MARIA Glaser on 02/07/24 14:12 Assessment and Plan Assessment & Plan (1) Annual physical exam: Code(s): Z00.00 - Encounter for general adult medical examination without abnormal findings Plan: Patient is advised to eat healthy, keep well hydrated, keep active and have adequate sleep. (2) Jsjefk-pk-cbmj transgender person: Comment: [facility] Endocrinology testosterone 02/2016 TAHBSO 08/2023 Dr. Dhaliwal Code(s): F64.0 - Transsexualism Plan: Continue to follow-up with [facility] (3) Type 2 diabetes mellitus with hyperglycemia: Comment: Armando 05/2023 Code(s): E11.65 - Type 2 diabetes mellitus with hyperglycemia Qualifiers: Diabetes mellitus halfway insulin use: without termite exterminator helper use Qualified Code(s): E11.65 - Type 2 diabetes mellitus with hyperglycemia Plan: Decrease the amount of carbohydrate intake, pasta, bread, rice and potatoes are all sugar and that is aside from all the sweet stuff, remember that fruits are good but they are Sweet also. Hemoglobin A1c goal of less than 6.5 presently on metformin 500 mg twice a day (4) Hypercholesterolemia: Code(s): E78.00 - Pure hypercholesterolemia, unspecified Plan: Avoid fried foods, chicken skin, eggs, butter margarine, pastries and meat. Be it pork or beef they have a lot of cholesterol on simvastatin 40 mg once a day. (5) Generalized anxiety disorder: Code(s): F41.1 - Generalized anxiety disorder Orders: Orders Complete Blood Count Auto Diff 6 Months E11.65 - Type 2 diabetes mellitus with hyperglycemia Free T4 (Free Thyroxine) 6 Months E11.65 - Type 2 diabetes mellitus with hyperglycemia Microalbumin, Random (w Creat) 6 Months E11.65 - Type 2 diabetes mellitus with hyperglycemia Creatinine Urine 6 Months E11.65 - Type 2 diabetes mellitus with hyperglycemia Vitamin B12 and Folate 6 Months E11.65 - Type 2 diabetes mellitus with hyperglycemia Vitamin D 25-OH Total 6 Months E11.65 - Type 2 diabetes mellitus with hyperglycemia AMB Hemoglobin A1c Today Z13.9 - Encounter for screening, unspecified Comprehensive Met. Panel 6 Months E11.65 - Type 2 diabetes mellitus with hyperglycemia Thyroid Stimulating Hormone 6 Months E11.65 - Type 2 diabetes mellitus with hyperglycemia Lipid Panel 6 Months E11.65 - Type 2 diabetes mellitus with hyperglycemia, E78.00 - Pure hypercholesterolemia, unspecified Hemoglobin A1c 6 Months E11.65 - Type 2 diabetes mellitus with hyperglycemia Referrals Psychiatry Outpatient Consultation Service F41.1 - Generalized anxiety disorder Coding Level of Care Code Est Pt Prev Care 18-39y([id number]) Diagnoses Annual physical exam Z00.00 Eacwvn-iu-bhin transgender person F64.0 Type 2 diabetes mellitus with hyperglycemia, without long-term current use of insulin E11.65 Diabetes mellitus halfway insulin use: without termite exterminator helper use Hypercholesterolemia E78.00 Generalized anxiety disorder F41.1
[2024-02-07 13:36] VITALS: BP 100/76; PULSE 78; O2SAT 98; BMI 27.6
== END 2024-02-07 14:21 | disposition home or self-care (01) ==
PROVIDERS: PCP Internal Medicine; Visit Provider Internal Medicine
DX: Z00.00 Encounter for general adult medical examination without abnormal findings (principal); F64.0 Transsexualism; E11.65 Type 2 diabetes mellitus with hyperglycemia; E78.00 Pure hypercholesterolemia, unspecified; F41.1 Generalized anxiety disorder
CPT/HCPCS: 83036; 99395

== ENCOUNTER 2024-03-20 13:35 | Outpatient (AMB) | payer OTHER, SELFPAY ==
--- NOTE | 2024-03-20 13:36 | MHC.OFFVISPS ---
Intake Intake Visit Reasons: consultation [facility] Required: No Allergies No Known Allergies Allergy (Verified 02/07/24 13:36) Medication List - Last Reconciled 03/20/24 by Vanesa Ba APRN cholecalciferol (vitamin D3) 50 mcg PO DAILY lisinopril 2.5 mg PO DAILY metformin 500 mg PO BID multivitamin 1 tab PO DAILY simvastatin 40 mg PO BEDTIME testosterone 10 mg/0.5 gram /actuation 2 pumps transdermal QAM HPI- Psychiatric Chief Complaint: consultation HPI Narrative: pt referred by PCP for evaluation of anxiety; PHQ9=13 and GAD7 = 15. pt reports anxiety comes and goes but is intense at times; pt isolates, doesn't go out much except to work; pt feels tired all the time, worries, feels on edge. pt is easily irritable and annoyed. pt has trouble relaxing. no SI or Hi Past Psychiatric History: outpt therapy in HS; took meds from PCP in HS but stopped after a time due to better; no IPLOC Subjective Subjective Subjective Medication Compliance: Yes Side effects from medications: No Review of Systems Medical Review of Systems: unchanged Mental Status Exam Mental Status Exam Patient Appearance: Appropriate Patient Orientation: Person, Place, Time and Situation Level of Consciousness: Awake and Appropriate Patient Behavior: Appropriate and Cooperative Mood Description: Withdrawn, Anxious and Apprehensive Affect Description: Anxious and Apprehensive Patient Cognition Impaired: No Ability to Follow Directions: Good Speech Pattern: Clear and Appropriate Memory Description: Intact Hallucinations: None Delusions: Not Present Perceptual Disturbances: Depersonalization Thought Process: Intact and Goal Oriented Thought Content: positive for Intact and positive for Goal Oriented Judgement: Good Assessment and Plan Assessment & Plan (1) Generalized anxiety disorder: Status: Acute Code(s): F41.1 - Generalized anxiety disorder Plan trial of prozac 10mg daily return in 4 weeks Medications: New fluoxetine (Prozac) 10 mg PO DAILY 30 caps 1RF Counseling and coordination of Care Pt. Self Management counseling: Maintenance-social rhythm, Behavior activation, General coping skills and Problem solving Medication management counseling: Effectiveness, Side effects, Dosing range, Duration, Drug interaction and Adherence Diagnosis and Prognosis Counseling: Accuracy of diagnosis, Prognosis over time, Impact of diagnosis on life functions, Impact of family relationship, Problematic behaviors secondary to diagnosis and Adequacy of current interventions Details: I spent 75 minutes reviewing the record, seeing the patient and documenting in the medical record. Counseling provided to the patient/caregiver as outlined below. Addressed patient/caregiver concerns regarding current medication regime including effective adherence. Addressed patient/caregiver concerns regarding diagnosis and prognosis including accuracy of diagnosis, prognosis over time, impact of diagnosis. Addressed patient/caregiver concerns regarding impact of recent stressors. [facility] Medical History (Updated 02/07/24 @ 13:43 by Ashley Maldonado MD) Type 2 diabetes mellitus with hyperglycemia Hypercholesterolemia Vitamin D deficiency Vxdqjy-yo-bhzl transgender person GERD (gastroesophageal reflux disease) Surgical History (Updated 02/07/24 @ 13:43 by Ashley Maldonado MD) FH: JOELLE-BSO (total abdominal hysterectomy and bilateral salpingo-oophorectomy) History of breast surgery Family History Father Brain tumor Mother No problems noted. Maternal Grandmother Diabetes Maternal Grandfather Myocardial infarction Social History (Updated 02/07/24 @ 13:47 by Ashley Maldonado MD) Housing: Apartment Alcohol intake: current Comment: once a month 1-2 drinks Patient Tobacco Use Status: Never used Tobacco e-Cigarette/Vaping Use: Never Used Second Hand Smoke Exposure: No service: No Current occupational status: employed Cognitive needs: No Hearing needs: No Vision needs: No Social History: lives with parents that he takes care of. He is dating a Person x 3 months - going well. He grew up in [place] with both parents and grandparents; he is only child. was in special ed classes as a child- difficulty reading and writing. graduated HS and tried college but did not finish; was on disability for a time but went to work 10 yrs ag= works at a [employer] x 10 yrs Substance History: none Trauma History: deferred Coding Level of Care Code Psych Diag Eval w/Med ([id number]) Diagnoses Generalized anxiety disorder F41.1
== END 2024-03-20 15:48 | disposition home or self-care (01) ==
LOC: HO.HOP 13:35
PROVIDERS: PCP Internal Medicine; Visit Provider Clinical Nurse Specialist Psychiatric/Mental Health
DX: F41.1 Generalized anxiety disorder (principal)
CPT/HCPCS: 90792

== ENCOUNTER → 2024-03-20 13:35 | Outpatient (BNVA) | payer OTHER, SELFPAY | PROVIDERS: PCP Internal Medicine; Visit Provider Clinical Nurse Specialist Psychiatric/Mental Health | DX: F41.1 Generalized anxiety disorder (principal) | CPT/HCPCS: 90792 ==

== ENCOUNTER 2024-04-17 13:29 | Outpatient (AMB) | payer OTHER, SELFPAY ==
--- NOTE | 2024-04-17 13:50 | MHC.OFFVISPS ---
Intake Intake Visit Reasons: f/u consultation Academic Director Required: No Allergies No Known Allergies Allergy (Verified 02/07/24 13:36) Medication List - Last Reconciled 04/17/24 by Vanesa Ba APRN cholecalciferol (vitamin D3) 50 mcg PO DAILY fluoxetine (Prozac) 10 mg PO DAILY lisinopril 2.5 mg PO DAILY metformin 500 mg PO BID multivitamin 1 tab PO DAILY simvastatin 40 mg PO BEDTIME testosterone 10 mg/0.5 gram /actuation 2 pumps transdermal QAM HPI- Psychiatric Chief Complaint: f/u consultation HPI Narrative: pt taking prozac 10 mg daily and reports no change; denies side effects. PHQ9 = 17 and GAD7= 17. He denies SI or HI. He is having trouble sleeping; she tosses and turns ; he worries. Past Psychiatric History: outpt therapy in HS; took meds from PCP in HS but stopped after a time due to better; no IPLOC Subjective Subjective Subjective Medication Compliance: Yes Side effects from medications: No Review of Systems Medical Review of Systems: unchanged Mental Status Exam Mental Status Exam Patient Appearance: Well Grooomed and Appropriate Patient Orientation: Person, Place, Time and Situation Level of Consciousness: Awake and Appropriate Patient Behavior: Appropriate and Cooperative Mood Description: Anxious and Sad Affect Description: Anxious and Sad Patient Cognition Impaired: No Ability to Follow Directions: Good Speech Pattern: Appropriate and Coherent Memory Description: Intact Hallucinations: None Delusions: Not Present Thought Process: Intact Thought Content: positive for Intact Judgement: Good Assessment and Plan Assessment & Plan (1) Generalized anxiety disorder: Status: Acute Code(s): F41.1 - Generalized anxiety disorder (2) Depression: Status: Acute Qualifiers: Depression Type: unspecified Qualified Code(s): F32.A - Depression, unspecified Code(s): F32.A - Depression, unspecified Medications: New hydroxyzine HCl Take one tablet at bedtime and may take an additional tablet in one hour if still awake orally bedtime; 60 tabs 0RF fluoxetine (Prozac) 20 mg PO DAILY 30 caps 1RF Discontinued fluoxetine Discontinued Reason: Doctor's Order 10 mg PO DAILY 30 caps 1RF Counseling and coordination of Care Pt. Self Management counseling: Maintenance-social rhythm, Mod caffeine/ETOH intake, Behavior activation and General coping skills Medication management counseling: Effectiveness, Side effects, Dosing range, Duration, Drug interaction and Adherence Diagnosis and Prognosis Counseling: Accuracy of diagnosis, Prognosis over time, Impact of diagnosis on life functions, Impact of family relationship, Problematic behaviors secondary to diagnosis and Adequacy of current interventions Details: I spent 40 minutes reviewing the record, seeing the patient and documenting in the medical record. Counseling provided to the patient/caregiver as outlined below. Addressed patient/caregiver concerns regarding current medication regime including effective adherence. Addressed patient/caregiver concerns regarding diagnosis and prognosis including accuracy of diagnosis, prognosis over time, impact of diagnosis. Addressed patient/caregiver concerns regarding impact of recent stressors. [facility] Medical History (Updated 05/05/24 @ 13:03 by Vanesa Ba APRN) Type 2 diabetes mellitus with hyperglycemia Hypercholesterolemia Vitamin D deficiency Etnayu-pc-hbpv transgender person GERD (gastroesophageal reflux disease) Surgical History (Updated 02/07/24 @ 13:43 by Ashley Maldonado MD) FH: JOELLE-BSO (total abdominal hysterectomy and bilateral salpingo-oophorectomy) History of breast surgery Family History Father Brain tumor Mother No problems noted. Maternal Grandmother Diabetes Maternal Grandfather Myocardial infarction Social History (Updated 02/07/24 @ 13:47 by Ashley Maldonado MD) Housing: Apartment Alcohol intake: current Comment: once a month 1-2 drinks Patient Tobacco Use Status: Never used Tobacco e-Cigarette/Vaping Use: Never Used Second Hand Smoke Exposure: No service: No Current occupational status: employed Cognitive needs: No Hearing needs: No Vision needs: No Social History: lives with parents that he takes care of. He is dating a Person x 3 months - going well. He grew up in [place] with both parents and grandparents; he is only child. was in special ed classes as a child- difficulty reading and writing. graduated HS and tried college but did not finish; was on disability for a time but went to work 10 yrs ag= works at a [employer] x 10 yrs Substance History: none Trauma History: deferred Coding Level of Care Code Est Pt Level 4 (05900) Diagnoses Generalized anxiety disorder F41.1 Depression, unspecified depression type F32.A Depression Type: unspecified
== END 2024-04-17 14:09 | disposition home or self-care (01) ==
LOC: HO.HOP 13:29
PROVIDERS: PCP Internal Medicine; Visit Provider Clinical Nurse Specialist Psychiatric/Mental Health
DX: F41.1 Generalized anxiety disorder (principal); F32.A Depression, unspecified
CPT/HCPCS: 99214

== ENCOUNTER 2024-05-22 14:11 | Outpatient (AMB) | payer OTHER, SELFPAY ==
[2024-05-22 14:26] VITALS: BP 106/80; PULSE 79; O2SAT 98; BMI 27.8
--- NOTE | 2024-05-22 14:26 | A.OFFPC_ITS ---
Vital Signs 05/22/24 14:26 Height 4 ft 10 in Weight 133 lb BMI 27.8 BP 106/80 Blood Pressure Location Lt brachial Position Sitting Pulse 79 Pulse Source Pulse Oximeter Pulse Oximetry (%) 98 Oxygen Delivery Method Room Air Intake Visit Reasons: DM Intake Note: Patient here for a follow up DM Minister Of Religion Required: No Accompanied by: Self / Same As Patient Allergies No Known Allergies Allergy (Verified 05/22/24 14:27) Tobacco use date assessed: 02/07/24 Dental Screening Dental Screen Date: 05/22/24 Did you have a dental visit in the last 12 months?: No Did you have a dental problem in the last 6 months where you did not have access to dental care?: No Was dental information given to patient?: Patient has dentist HPI DM HPI Details The patient is a 39-year-old male presenting with requests for medic ation refill and adjustment, as well as concerns regarding the efficacy of current pharmacotherapy. The patient's current treatment regimen includes fluoxetine for Major Depressive Disorder and hydroxyzine for insomnia related to Generalized Anxiety Disorder. He reported that fluoxetine had run out as of the day prior to this visit, due to a delay in refill processing. Regarding hydroxyzine, which he takes nightly to aid sleep, the patient reports insufficient therapeutic effect and expresses a desire for dosing reevaluation. The patient also has a background of Type 2 Diabetes Mellitus, managed primarily with metformin, with recent discussions on increasing dosage to enhance glycemic control. No significant side effects have been associated with metformin at current dosing. The patient's request to have ear cleaning scheduled was noted, as he has not had it done before and experiences discomfort. The patient denies issues with heartburn and mentions following a healthy lifestyle with a specific indulgence during holiday periods. [facility] Medical History (Updated 05/05/24 @ 13:03 by Vanesa Ba APRN) Type 2 diabetes mellitus with hyperglycemia Hypercholesterolemia Vitamin D deficiency Vlhztv-bb-gfva transgender person GERD (gastroesophageal reflux disease) Surgical History FH: JOELLE-BSO (total abdominal hysterectomy and bilateral salpingo-oophorectomy) History of breast surgery Family History Father Brain tumor Mother No problems noted. Maternal Grandmother Diabetes Maternal Grandfather Myocardial infarction Social History Housing: Apartment Alcohol intake: current Comment: once a month 1-2 drinks Patient Tobacco Use Status: Never used Tobacco e-Cigarette/Vaping Use: Never Used Second Hand Smoke Exposure: No service: No Current occupational status: employed Current occupational exposures/hazards: No Cognitive needs: No Hearing needs: No Vision needs: Yes Questionnaire Thrive Questionnaire Date Thrive assessed: 01/31/24 I am a: Patient What is your living situation today?: I have a steady place to live Within the past 12 months, did the food you bought not last and you didn't have the money to get more?: I choose not to answer this question Within the past 12 months, did you worry whether your food would run out before you got money to buy more?: I choose not to answer this question Do you have trouble paying for medicines?: No Do you have trouble getting transportation to medical appointments?: No Do you have trouble paying your heating and electricity bill?: No Do you have trouble taking care of your child, family member or friend?: No Do you have trouble with day-to-day activities such as bathing, preparing meals, shopping, managing finances, etc.?: No Are you currently unemployed and looking for a job?: No Are you interested in more education?: I choose not to answer this question Please select the resources that you would like help with: None Currently or been in a relationship where the following occur: I choose not to answer THRIVE Score: 0 PETE-7 AMB Questionnaire PETE-7 Date PETE - 7 assessed: 02/07/24 Source: Developed by Drs. Eliu Hinkle, Harmony Gutierrez, Asif Junior and colleagues, with an educational jose from [email or web address]. Physical exam (Primary Care) Vital Signs: Last Vital Signs Pulse 79 05/22/24 14:26 BP 106/80 05/22/24 14:26 Pulse Ox 98 05/22/24 14:26 Oxygen Delivery Method Room Air 05/22/24 14:26 BMI result Body Mass Index 27.8 Tobacco/Smoking Status: Tobacco use Status Tobacco use date assessed 02/07/24 05/22/24 14:31 Patient Tobacco Use Status Never used Tobacco 05/22/24 14:31 e-Cigarette/Vaping Use Never Used 05/22/24 14:31 Thrive Assessment: Date of Thrive Assessment Date Thrive assessed 01/31/24 05/22/24 14:31 Currently or been in a relationship where the following occur: I choose not to answer Const General: alert; No acute distress Eyes Conjunctivae: conjunctivae normal Resp Auscultation: clear to auscultation bilaterally Cardio Rate: regular rate Rhythm: regular rhythm GI Inspection: Yes normal to inspection Extrem General: Yes normal to inspection and No edema Results AMB Hemoglobin A1c AMB Hemoglobin A1c 6.5 % Last Edit by ANA MARIA Dudley on 05/22/24 14:3 3 Results Reviewed Results Reviewed: Laboratory Last Values Hgb A1c (Clinic) 6.5 % (4.0-6.0) H 05/22/24 14:31 Coding Level of Care Code Est Pt Level 4 (67967) Complex EM visit Add On G2211 Diagnoses Type 2 diabetes mellitus with hyperglycemia, without long-term current use of insulin E11.65 Diabetes mellitus electrical system specialist insulin use: without shelter use Hypercholesterolemia E78.00 Clqvkc-ax-htkz transgender person F64.0 Gastroesophageal reflux disease without esophagitis K21.9 Esophagitis presence: without esophagitis Overweight (BMI 25.0-29.9) E66.3 Generalized anxiety disorder F41.1 Impacted cerumen of both ears H61.23 Assessment & Plan Assessment & Plan (1) Type 2 diabetes mellitus with hyperglycemia: Comment: Armando 05/2023 Code(s): E11.65 - Type 2 diabetes mellitus with hyperglycemia Category: Medical Qualifiers: Diabetes mellitus electrical system specialist insulin use: without electrical system specialist use Qualified Code(s): E11.65 - Type 2 diabetes mellitus with hyperglycemia Plan: Decrease the amount of carbohydrate intake, pasta, bread, rice and potatoes are all sugar and that is aside from all the sweet stuff, remember that fruits are good but they are Sweet also. Hemoglobin A1c goal of less than 6.5. Patient is on metformin 500 mg twice a day (2) Hypercholesterolemia: Code(s): E78.00 - Pure hypercholesterolemia, unspecified Category: Medical Plan: Avoid fried foods, chicken skin, eggs, butter margarine, pastries and meat. Be it pork or beef they have a lot of cholesterol LDL goal of less than 100 and triglyceride of less than 150 on simvastatin 40 mg at bedtime. (3) Iwgwia-kj-jkgo transgender person: Comment: [facility] Endocrinology testosterone 02/[address] [facility]AHBSO 08/2023 Dr. Dhaliwal Code(s): F64.0 - Transsexualism Category: Social Hx Plan: Patient continues to follow-up with [facility] endocrinology on testosterone (4) GERD (gastroesophageal reflux disease): Code(s): K21.9 - Gastro-esophageal reflux disease without esophagitis Category: Medical Qualifiers: Esophagitis presence: without esophagitis Qualified Code(s): K21.9 - Gastro-esophageal reflux disease without esophagitis Plan: Avoid the foods that causes that usually spicy foods, tomato products, juices, coffee, soda and foods that your sensitive to. After eating do not lie down, allow 3-4 hours before in lie down. And keep the head of bed above 30 degrees to avoid the acid from going up. (5) Overweight (BMI 25.0-29.9): Code(s): E66.3 - Overweight Category: Medical Plan: Diet and exercise (6) Generalized anxiety disorder: Code(s): F41.1 - Generalized anxiety disorder Category: Medical Plan: Patient has been referred to outpatient psychiatry and medication adjustment done placed on fluoxetine 20 mg once a day and hydroxyzine. (7) Impacted cerumen of both ears: Code(s): H61.23 - Impacted cerumen, bilateral Category: Medical Plan - Fluoxetine refill to be submitted due to patient's current stock depletion. Ensure continuous treatment for Major Depressive Disorder. - Hydroxyzine dose adjustment to 25 mg to address patient's reported inadequate sleep support due to insomnia. - Increase metformin dosage to 1000 mg twice daily for improved glycemic control. Monitor for potential gastrointestinal side effects, such as nausea or diarrhea. - Arrange scheduling for an ear cleaning appointment, as per patient request, for addressing discomfort. - Reinforce the importance of a balanced diet and maintaining active lifestyle habits, permitting some flexibility during holidays. Orders: Orders AMB Hemoglobin A1c Today E11.65 - Type 2 diabetes mellitus with hyperglycemia Medications: New metformin 1,000 mg PO BIDWMEAL 60 tabs 3RF E11.65 - Type 2 diabetes mellitus with hyperglycemia Changed From hydroxyzine HCl Take one tablet at bedtime and may take an additional tablet in one hour if still awake orally bedtime; 60 tabs 0RF To hydroxyzine HCl 25 mg PO BEDTIME 30 tabs 1RF Refilled fluoxetine (Prozac) 20 mg PO DAILY 30 caps 1RF Discontinued metformin Discontinued Reason: Doctor's Order 500 mg PO BID 180 tabs 3RF E11.65 - Type 2 diabetes mellitus with hyperglycemia
== END 2024-05-22 15:09 | disposition home or self-care (01) ==
PROVIDERS: PCP Internal Medicine; Visit Provider Internal Medicine
DX: E11.65 Type 2 diabetes mellitus with hyperglycemia (principal); E78.00 Pure hypercholesterolemia, unspecified; F64.0 Transsexualism; K21.9 Gastro-esophageal reflux disease without esophagitis; E66.3 Overweight; F41.1 Generalized anxiety disorder; H61.23 Impacted cerumen, bilateral

== ENCOUNTER → 2024-05-22 14:11 | Outpatient (BNVA) | payer OTHER, SELFPAY | PROVIDERS: PCP Internal Medicine; Visit Provider Internal Medicine | DX: E11.65 Type 2 diabetes mellitus with hyperglycemia (principal); E78.00 Pure hypercholesterolemia, unspecified; F64.0 Transsexualism; K21.9 Gastro-esophageal reflux disease without esophagitis; E66.3 Overweight; F41.1 Generalized anxiety disorder; H61.23 Impacted cerumen, bilateral; Z79.84 Long term (current) use of oral hypoglycemic drugs; Z79.899 Other long term (current) drug therapy | CPT/HCPCS: 83036 ==

== ENCOUNTER 2024-05-29 11:30 | Outpatient (AMB) | payer BC, SELFPAY ==
--- NOTE | 2024-05-29 11:36 | MHC.OFFVISPS ---
Intake Intake Visit Reasons: f/u consultation Sprayer Automatic Spray Machine Required: No Allergies No Known Allergies Allergy (Verified 05/22/24 14:27) Medication List - Last Reconciled 05/29/24 by Vanesa Ba APRN cholecalciferol (vitamin D3) 50 mcg PO DAILY fluoxetine (Prozac) 20 mg PO DAILY hydroxyzine HCl 25 mg PO BEDTIME lisinopril 2.5 mg PO DAILY metformin 500 mg PO BIDWMEAL multivitamin 1 tab PO DAILY simvastatin 40 mg PO BEDTIME testosterone 10 mg/0.5 gram /actuation 2 pumps transdermal QAM HPI- Psychiatric Chief Complaint: f/u consultation HPI Narrative: Pt reports taking prozac 20 mg daily and hydroxyzine 25 mg at bedtime ; he reports improvement in mood, anxiety and sleep; he denies side effects; No SI or HI. His PHQ9 went from 17 to 13 and GAD7 went from 17 to 11. Past Psychiatric History: outpt therapy in ; took meds from PCP in but stopped after a time due to better; no IPLOC Subjective Subjective Subjective Medication Compliance: Yes Side effects from medications: No Review of Systems Medical Review of Systems: unchanged Mental Status Exam Mental Status Exam Patient Appearance: Well Grooomed and Appropriate Patient Orientation: Person, Place, Time and Situation Level of Consciousness: Awake, Appropriate and Alert Patient Behavior: Appropriate and Cooperative Mood Description: Calm and Withdrawn Affect Description: Calm and Withdrawn Patient Cognition Impaired: No Ability to Follow Directions: Good Speech Pattern: Soft-Spoken Memory Description: Intact Hallucinations: None Delusions: Not Present Thought Process: Intact Thought Content: positive for Intact Judgement: Good Assessment and Plan Assessment & Plan (1) Generalized anxiety disorder: Status: Acute Code(s): F41.1 - Generalized anxiety disorder (2) Depression: Status: Inactive Qualifiers: Depression Type: unspecified Qualified Code(s): F32.A - Depression, unspecified Code(s): F32.A - Depression, unspecified (3) Dysthymia: Status: Acute Code(s): F34.1 - Dysthymic disorder Plan continue medications as per below follow up with pcp - next appt august 2024 given refills for 4 months instructed to call this office if needs any changes or has concerns before next PCP appt Medications: Refilled hydroxyzine HCl 25 mg PO BEDTIME 30 tabs 4RF fluoxetine (Prozac) 20 mg PO DAILY 30 caps 4RF Counseling and coordination of Care Pt. Self Management counseling: Maintenance-social rhythm, Mod caffeine/ETOH intake and Sleep hygiene Medication management counseling: Effectiveness, Side effects, Dosing range, Duration, Drug interaction and Adherence Diagnosis and Prognosis Counseling: Accuracy of diagnosis, Prognosis over time, Impact of diagnosis on life functions, Impact of family relationship, Problematic behaviors secondary to diagnosis and Adequacy of current interventions Details: I spent 30 minutes reviewing the record, seeing the patient and documenting in the medical record. Counseling provided to the patient/caregiver as outlined below. Addressed patient/caregiver concerns regarding current medication regime including effective adherence. Addressed patient/caregiver concerns regarding diagnosis and prognosis including accuracy of diagnosis, prognosis over time, impact of diagnosis. Addressed patient/caregiver concerns regarding impact of recent stressors. [facility] Medical History (Updated 05/29/24 @ 11:50 by Vanesa Ba APRN) Depression Type 2 diabetes mellitus with hyperglycemia Hypercholesterolemia Vitamin D deficiency Zkjjlz-re-ardo transgender person GERD (gastroesophageal reflux disease) Surgical History FH: JOELLE-BSO (total abdominal hysterectomy and bilateral salpingo-oophorectomy) History of breast surgery Family History Father Brain tumor Mother No problems noted. Maternal Grandmother Diabetes Maternal Grandfather Myocardial infarction Social History Housing: Apartment Alcohol intake: current Comment: once a month 1-2 drinks Patient Tobacco Use Status: Never used Tobacco e-Cigarette/Vaping Use: Never Used Second Hand Smoke Exposure: No service: No Current occupational status: employed Current occupational exposures/hazards: No Cognitive needs: No Hearing needs: No Vision needs: Yes Social History: lives with parents that he takes care of. He is dating a Person x 3 months - going well. He grew up in [place] with both parents and grandparents; he is only child. was in special ed classes as a child- difficulty reading and writing. graduated HS and tried college but did not finish; was on disability for a time but went to work 10 yrs ag= works at a [employer] x 10 yrs Substance History: none Trauma History: deferred Coding Level of Care Code Est Pt Level 4 (44519) Diagnoses Generalized anxiety disorder F41.1 Depression, unspecified depression type F32.A Depression Type: unspecified Dysthymia F34.1
== END 2024-05-29 11:45 | disposition home or self-care (01) ==
LOC: HO.HOP 11:30
PROVIDERS: PCP Internal Medicine; Visit Provider Clinical Nurse Specialist Psychiatric/Mental Health
DX: F41.1 Generalized anxiety disorder (principal); F32.A Depression, unspecified; F34.1 Dysthymic disorder
CPT/HCPCS: 99214

== ENCOUNTER 2024-06-18 10:51 | Outpatient (AMB) | payer BC, SELFPAY ==
--- NOTE | 2024-06-18 10:56 | MHC.PC.OV ---
Vital Signs 06/18/24 10:57 Height 4 ft 10 in Weight 134 lb 4 oz BMI 28.1 BP 112/70 Blood Pressure Location Lt brachial Position Sitting Pulse 83 Pulse Source Pulse Oximeter Temp 97.3 F Temp Source Skin Pulse Oximetry (%) 96 Oxygen Delivery Method Room Air Intake Visit Reasons: ear irrigation Intake Note: Patient is here to follow up on ear irrigation. Well Services Operator Required: No Director Internal Control: Not Required per policy Accompanied by: Self / Same As Patient Allergies No Known Allergies Allergy (Verified 06/18/24 10:57) Tobacco use date assessed: 06/18/24 Dental Screening Dental Screen Date: 06/18/24 Did you have a dental visit in the last 12 months?: No Did you have a dental problem in the last 6 months where you did not have access to dental care?: No Was dental information given to patient?: No HPI ear irrigation HPI Details 38-year-old born female at identifying as male last seen by Dr. Maldonado 04/2024 coming in for ear flushing. Patient tells us they are feeling generally well without any acute concerns today. [facility] Medical History Depression Type 2 diabetes mellitus with hyperglycemia Hypercholesterolemia Vitamin D deficiency Erbxwm-py-lvcf transgender person GERD (gastroesophageal reflux disease) Surgical History FH: JOELLE-BSO (total abdominal hysterectomy and bilateral salpingo-oophorectomy) History of breast surgery Family History Father Brain tumor Mother No problems noted. Maternal Grandmother Diabetes Maternal Grandfather Myocardial infarction Social History Housing: Apartment Alcohol intake: current Comment: once a month 1-2 drinks Patient Tobacco Use Status: Never used Tobacco e-Cigarette/Vaping Use: Never Used Second Hand Smoke Exposure: No service: No Current occupational status: employed Current occupational exposures/hazards: No Cognitive needs: No Hearing needs: No Vision needs: Yes (Glasses) Questionnaire PHQ-9 Over the last 2 weeks, how often have you been bothered by any of the following problems? 1. Little interest or pleasure in doing things: not at all 2. Feeling down, depressed, or hopeless: not at all 3. Trouble falling or staying asleep, or sleeping too much: not at all 4. Feeling tired or having little energy: not at all 5. Poor appetite or overeating: not at all 6. Feeling bad about yourself - or that you are a failure or have let yourself or your family down: not at all 7. Trouble concentrating on things, such as reading the newspaper or watching television: not at all 8. Moving or speaking so slowly that other people could have noticed. Or the opposite - being so fidgety or restless that you have been moving around a lot more than usual: not at all 9. Thoughts that you would be better off or of hurting yourself in some way: not at all Total score: 0 Depression Screening Interpretation: Negative Depression Screening Done: Yes Source: Developed by Drs. Eliu Hinkle, Harmony Gutierrez, Asif Junior and colleagues, with an educational jose from [employer]. Thrive Questionnaire Date Thrive assessed: 06/18/24 AUDIT C Alcohol Use Questionnaire (AUDIT-C) 1. How often do you have a drink containing alcohol?: Monthly or less 2. How many drinks containing alcohol do you have on a typical day when you are drinking?: 1 or 2 Total Score: 1 PETE-7 AMB Questionnaire PETE-7 Date PETE - 7 assessed: 06/18/24 Feeling nervous, anxious, or on edge: 1 = Several days Not being able to stop or control worryin = Several days Worrying too much about different things: 1 = Several days Trouble relaxin = More than half the days Being so restless that it is hard to sit still: 1 = Several days Becoming easily annoyed or irritable: 2 = More than half the days Feeling afraid as if something awful might happen: 1 = Several days Total PETE-7 score (0-4 normal; 5-9 mild; 10-14 moderate; 15-21 severe): 9 Source: Developed by Drs. Eliu Hinkle, Harmony Gutierrez, Asif Junior and colleagues, with an educational jose from [employer]. Review of Systems Const Denies body aches, Denies chills and Denies fever(s) ENT Details: Decreased hearing Card Reports no additional complaints Resp Reports no additional complaints Physical exam (Primary Care) Vital Signs: Last Vital Signs Temp 97.3 F 06/18/24 10:57 Pulse 83 06/18/24 10:57 BP 112/70 06/18/24 10:57 Pulse Ox 96 06/18/24 10:57 Oxygen Delivery Method Room Air 06/18/24 10:57 BMI result Body Mass Index 28.1 Tobacco/Smoking Status: Tobacco use Status Tobacco use date assessed 06/18/24 06/18/24 11:01 Patient Tobacco Use Status Never used Tobacco 06/18/24 11:01 e-Cigarette/Vaping Use Never Used 06/18/24 11:01 PHQ-9: PHQ-9 Score PHQ-9: Total score 0 06/18/24 11:01 Depression Screening Interpretation: Negative Thrive Assessment: Date of Thrive Assessment Date Thrive assessed 06/18/24 06/18/24 11:01 Const General: cooperative, healthy appearing, comfortable and no acute distress Orientation/consciousness: patient oriented x3 HENMT Head: Yes normocephalic Ears: hearing grossly normal bilaterally and Abnormal EAC present cerumen impaction bilateral General nose exam: Normal external nose present Eyes General: appearance normal, both eyes and all related structures Conjunctivae: conjunctivae normal Neck Neck: Yes full ROM and Yes no lymphadenopathy Resp Effort & Inspection: normal respiratory effort Cardio Rate: regular rate Neuro General: patient oriented x3 Gait exam (Neuro): Normal gait present Psych Affect: normal affect Attitude: cooperative Insight: Good insight present (Psych) Judgement: Good judgement present (Psych) Office Procedures Cerumen Removal From which ear canal was the cerumen removed: bilateral Removal: cerumen loop/spoon Notes: patient tolerated procedure well, no complications and ear canal clear [id number] Wax Removal by Spoon/Curette Coding Level of Care Code Procedure Only Diagnoses Impacted cerumen of both ears H61.23 CPT Codes Office Procedure - CPT: 32853-Gle Wax Removal by Spoon/Curette ([id number]) Assessment & Plan Assessment & Plan (1) Impacted cerumen of both ears: Code(s): H61.23 - Impacted cerumen, bilateral Category: Medical Plan: Cerumen was successfully removed bilaterally with lighted curette. Patient tolerated the procedure well without complication. Bilateral TMs were visualized as intact with well aerated middle ear spaces without any signs of trauma. Advised patient to follow up as needed for this concern. Plan This note was constructed using voice recognition software. While every effort has been made to ensure accuracy and outdoor illuminating engineer, still areas may have been included sometimes these areas may affect the content or meeting of the given symptoms. Total time spent caring for the patient today was fifteen minutes. This includes time spent before the visit reviewing the chart, time spent during the visit, and time spent after the visit and documentation.
[2024-06-18 10:57] VITALS: BP 112/70; PULSE 83; TEMP 36.3; O2SAT 96; BMI 28.1
--- OUTSIDE RECORDS SUMMARY | 2024-06-18 12:14 | XMS_ITS | Clinical Summary ---
Author Organization [employer] [facility] Address [address] [place] [address] Care Team Providers Care Catalogue And Special Products Manager Name Role Phone Ashley Maldonado MD Primary Care Provider [phone] Allergies No known active allergies Medications No known medications Active Problems No known active problems Social History Tobacco Use Types Packs/Day Years Used Date Smoking Tobacco: Never Assessed Sex and Gender Information Value Date Recorded Sex Assigned at Not on file Gender Identity Not on file Sexual Orientation Not on file Job Start Date Occupation Industry Not on file Not on file Not on file Last Filed Vital Signs Vital Sign Reading Time Taken Comments Blood Pressure 136/72 11/25/2020 10:04 PM EDT Pulse 72 11/25/2020 10:04 PM EDT Temperature 36.8 ??C (98.2 ??F) 11/25/2020 10:04 PM E DT Respiratory Rate 18 11/25/2020 10:04 PM EDT Oxygen Saturation 99% 11/25/2020 10:04 PM EDT Inhaled Oxygen Concentration - - Weight - - Height - - Body Mass Index - - Plan of Treatment Health Maintenance Due Date Last Done Comments Hepatitis B Vaccines (1 of 3 - 3-dose series) 1986 Hepatitis C Screening 1986 COVID-19 Vaccine (#1) 1986 Depression Screening 1998 Preventative Health Evaluation 2004 DTap / Tdap / Td (1 - Tdap) 2005 Influenza Vaccine (#1) 2024 Pneumococcal Vaccine Aged Out No long er eligible based on patient's age to complete this topic RSV Ped < 20 months Aged Out No longe r eligible based on patient's age to complete this topic Care Teams Catalogue And Special Products Manager Relationship Specialty Start Date End Date Po, Ashley Gilbert MD [address] [place] [address] [address] [facility] [place] [address] PCP - General Internal Medicine 11/25/20
--- OUTSIDE RECORDS SUMMARY | 2024-06-18 12:14 | XMS_ITS | Clinical Summary ---
Author Organization [employer] [facility] Address [address] [place] [address] Care Team Providers Care Job Molder Name Role Phone Ashley Maldonado MD Primary Care Provider [phone] Social History Tobacco Use Types Packs/Day Years Used Date Smoking Tobacco: Never Assessed Sex and Gender Information Value Date Recorded Sex Assigned at Not on file Gender Identity Not on file Sexual Orientation Not on file Obstetrics History Plan of Treatment Health Maintenance Due Date Last Done Comments DTaP,Tdap,and Td Vaccines (1 - Tdap) 2005 Hepatitis B Vaccines (1 of 3 - 19+ 3-dose series) 2005 COVID-19 Vaccine ( - 2023-2 5 season) 2024 Influenza Vaccine (#1) 2024 HIB Vaccines Aged Out No longer eligi ble based on patient's age to complete this topic HPV Vaccines Aged Out No longer eligi ble based on patient's age to complete this topic Hepatitis A Vaccines Aged Out No long er eligible based on patient's age to complete this topic IPV Vaccines Aged Out No longer eligi ble based on patient's age to complete this topic MMR Vaccines Aged Out No longer eligi ble based on patient's age to complete this topic Meningococcal ACWY Vaccine Aged Out N o longer eligible based on patient's age to complete this topic Pneumococcal Vaccine: Pediat rics (0 to 5 Years) and At-Risk Patients (6 to 64 Years) Aged Out No longer eligible b ased on patient's age to complete this topic RSV Immunization Patients Un caden 20 months Aged Out No longer eligible b ased on patient's age to complete this topic Varicella Vaccines Aged Out No longer eligible based on patient's age to complete this topic Care Teams Job Molder Relationship Specialty Start Date End Date Ashley Maldonado MD [address] [place] [address] [address] [facility] [place] [address] PCP - General Internal Medicine 11/25/20
== END 2024-06-18 11:21 | disposition home or self-care (01) ==
PROVIDERS: PCP Internal Medicine
DX: H61.23 Impacted cerumen, bilateral (principal)

== ENCOUNTER → 2024-06-18 10:51 | Outpatient (BNVA) | payer BC, SELFPAY | PROVIDERS: PCP Internal Medicine | DX: H61.23 Impacted cerumen, bilateral (principal); F64.0 Transsexualism | CPT/HCPCS: 69210; 96127 ==

== ENCOUNTER 2024-08-05 09:51 | Outpatient (REF) | payer BC, SELFPAY ==
[2024-08-05 10:17] LABS: MANUAL DIFF FLAG NO
[2024-08-05 10:50] LABS: Basophils Percent Auto 0.6 % (0-2); Eosinophils Absolute Auto 0.1 X10*3/uL (0.0-0.4); Hematocrit 38.7 % (42.0-52.0); Hemoglobin 13.3 g/dl (14.0-18.0); Imm Gran Abs Auto 0.01 X10*3/uL (0.00-0.03); Imm Gran Pct Auto 0.2 % (0.0-0.4); Lymphocytes Percent Auto 41.4 % (20-40); Mean Corpuscular HGB Conc 34.4 g/dl (31.0-36.0); Mean Corpuscular Hemoglobin 29.7 pg (27.0-33.0); Mean Corpuscular Volume 86.4 fL (80.0-98.0); Mean Platelet Volume 10.4 fL (9.4-12.4); Monocytes Absolute Auto 0.4 X10*3/uL (0.1-1.2); Monocytes Percent Auto 8.9 % (2-11); Neutrophils Absolute Auto 2.2 x10*3/uL (2.0-8.3); Neutrophils Percent Auto 45.9 % (45-73); Platelet Count 255 X10*3/uL (160-400); Red Blood Count 4.48 X10*6/uL (4.60-5.80); Red Cell Distribution Width 12.3 % (11.0-16.0); White Blood Count 4.7 X10*3/uL (4.8-10.8)
[2024-08-05 11:08] LABS: Estimated Average Glucose 151 mg/dL; Hemoglobin A1c % 6.9 % (<6.0)
--- OUTSIDE RECORDS SUMMARY | 2024-08-05 11:15 | XMS_ITS | Clinical Summary ---
Author Organization [facility] Address [address] [place] [address] Care Team Providers Care Peeled Potato Inspector Name Role Phone Ashley Maldonado MD Primary Care Provider [phone] Allergies No known active allergies Medications No [...] age to complete this topic Care Teams Peeled Potato Inspector Relationship Specialty Start Date End Date Po, Ashley Gilbert MD [address] [place] [address] [address] [facility] [place] [address] PCP - General Internal Medicine 11/25/20
--- OUTSIDE RECORDS SUMMARY | 2024-08-05 11:15 | XMS_ITS | Clinical Summary ---
Author Organization [facility] Address [address] [place] [address] Care Team Providers Care Harp Maker Name Role Phone Ashley Maldonado MD Primary Care Provider [phone] Social History Tobacco Use Types Packs/Day Years Used Date Smoking Tobacco: Never Assessed Sex and Gender Information Value Date Recorded Sex Assigned at Not on file Legal Sex Male 3:43 AM EST Gender Identity Not on file Sexual Orientation Not on file Obstetrics History Plan of Treatment Health Maintenance Due Date Last Done Comments DTaP,Tdap,and Td Vaccines (1 - Tdap) 2005 Hepatitis B Vaccines (1 of 3 - 19+ 3-dose series) 2005 COVID-19 Vaccine (2023-2 5 season) 2024 Influenza Vaccine (#1) 2024 [...] patient's age to complete this topic Meningococcal B Vacine Aged Out No lo nger eligible based on patient's age to complete [...] age to complete this topic Care Teams Harp Maker Relationship Specialty Start Date End Date Ashley Maldonado MD [address] [place] [address] [address] [facility] [place] [address] PCP - General Internal Medicine 11/25/20
[2024-08-05 12:26] LABS: Folate 15.4 ng/mL (> or = 4.0); Vitamin B12 408 pg/mL (200-900)
[2024-08-05 12:50] LABS: Albumin Level 4.4 g/dL (3.5-5.0); Anion Gap 10 (12-20); Aspartate Amino Transferase 112 U/L (5-37); Bilirubin Total 0.7 mg/dL (0.0-1.0); Blood Urea Nitrogen 9 mg/dL (9-16); Calcium 9.3 mg/dL (8.4-10.2); Carbon Dioxide 28 mmol/L (22-29); Chloride 107 mmol/L (96-108); Cholesterol 142 mg/dL (<200); Estimated Glomerular Filt Rate > 60; Free T4 (Free Thyroxine) 0.95 ng/dL (0.71-1.85); Glucose Random 119 mg/dL (60-115); HDL Cholesterol 39 mg/dL (>40); LDL Cholesterol Calculated 87 mg/dL (<100); Potassium 4.2 mmol/L (3.3-5.1); Sodium 141 mmol/L (135-145); Thyroid Stimulating Hormone 0.98 uIU/mL (0.32-4.0); Total Protein 7.9 g/dL (6.5-8.0); Triglycerides 82 mg/dL (<150); Vitamin D 25-OH Total 56.7 ng/mL (>30)
[2024-08-05 13:19] LABS: Alanine Aminotransferase 137 U/L (0-40); Alkaline Phosphatase 134 U/L (39-117)
== END 2024-08-05 09:52 | disposition home or self-care (01) ==
LOC: HO.LAB 09:51
PROVIDERS: PCP Internal Medicine; Visit Provider Internal Medicine
DX: E11.65 Type 2 diabetes mellitus with hyperglycemia (principal); E78.00 Pure hypercholesterolemia, unspecified
CPT/HCPCS: 36415; 80053; 80061; 82306; 82607; 82746; 83036; 84439; 84443; 85025

== ENCOUNTER 2024-08-27 10:36 | Outpatient (AMB) | payer OTHER, SELFPAY ==
--- NOTE | 2024-08-27 10:54 | A.OFFPC_ITS ---
Vital Signs 08/27/24 10:55 Height 4 ft 10 in Weight 133 lb 2 oz BMI 27.8 BP 130/62 Blood Pressure Location Lt brachial Position Sitting Pulse 96 Pulse Source Pulse Oximeter Temp 96.9 F Temp Source Temporal Artery Scan Pulse Oximetry (%) 97 Oxygen Delivery Method Room Air Intake Visit Reasons: DM Intake Note: Patient is here to follow up on DM. Cab Starter Required: No Biofuels Production Technician: Not Required per policy Accompanied by: Self / Same As Patient Allergies No Known Allergies Allergy (Verified 08/27/24 10:54) Medication List - Last Reconciled 08/27/24 by Ashley Maldonado MD cholecalciferol (vitamin D3) 50 mcg PO DAILY empagliflozin (Jardiance) 10 mg PO DAILY fluoxetine (Prozac) 20 mg PO DAILY hydroxyzine HCl 25 mg PO BEDTIME lisinopril 2.5 mg PO DAILY metformin 500 mg PO BIDWMEAL multivitamin 1 tab PO DAILY simvastatin 40 mg PO BEDTIME testosterone 10 mg/0.5 gram /actuation 2 pumps transdermal QAM Tobacco use date assessed: 08/27/24 Dental Screening Dental Screen Date: 06/18/24 [facility] Medical History Depression Type 2 diabetes mellitus with hyperglycemia Hypercholesterolemia Vitamin D deficiency Mzjtut-vd-pufl transgender person GERD (gastroesophageal reflux disease) Surgical History FH: JOELLE-BSO (total abdominal hysterectomy and bilateral salpingo-oophorectomy) History of breast surgery Family History Father Brain tumor Mother No problems noted. Maternal Grandmother Diabetes Maternal Grandfather Myocardial infarction Social History Housing: Apartment Alcohol intake: current Comment: once a month 1-2 drinks Patient Tobacco Use Status: Never used Tobacco e-Cigarette/Vaping Use: Never Used Second Hand Smoke Exposure: No service: No Current occupational status: employed Current occupational exposures/hazards: No Cognitive needs: No Hearing needs: No Vision needs: Yes (Glasses) Questionnaire Thrive Questionnaire Date Thrive assessed: 06/18/24 AUDIT C Alcohol Use Questionnaire (AUDIT-C) 2. How many drinks containing alcohol do you have on a typical day when you are drinking?: 1 or 2 3. How often do you have six or more drinks on one occasion?: Never Total Score: 0 PETE-7 AMB Questionnaire PETE-7 Date PETE - 7 assessed: 06/18/24 Source: Developed by Drs. Eliu Hinkle, Harmony Gutierrez, Asif Junior and colleagues, with an educational jose from [employer]. Physical exam (Primary Care) Vital Signs: Last Vital Signs Temp 96.9 F 08/27/24 10:55 Pulse 96 08/27/24 10:55 BP 130/62 08/27/24 10:55 Pulse Ox 97 08/27/24 10:55 Oxygen Delivery Method Room Air 08/27/24 10:55 BMI result Body Mass Index 27.8 Tobacco/Smoking Status: Tobacco use Status Tobacco use date assessed 08/27/24 08/27/24 10:58 Patient Tobacco Use Status Never used Tobacco 08/27/24 10:58 e-Cigarette/Vaping Use Never Used 08/27/24 10:58 Thrive Assessment: Date of Thrive Assessment Date Thrive assessed 06/18/24 08/27/24 10:58 Const General: alert; No acute distress Eyes Conjunctivae: conjunctivae normal Resp Auscultation: clear to auscultation bilaterally Cardio Rate: regular rate Rhythm: regular rhythm GI Inspection: Yes normal to inspection Extrem General: Yes normal to inspection and No edema Coding Level of Care Code Est Pt Level 4 (36374) Complex EM visit Add On G2211 Diagnoses Zktsis-ff-zkiv transgender person F64.0 Hypercholesterolemia E78.00 Generalized anxiety disorder F41.1 LFT elevation R79.89 Assessment & Plan Assessment & Plan (1) Nwfxfg-mf-ypjy transgender person: Comment: [facility]2023 Dr. Dhaliwal Code(s): F64.0 - Transsexualism Category: Social Hx Plan: Continue to follow-up with endocrinology (2) Hypercholesterolemia: Code(s): E78.00 - Pure hypercholesterolemia, unspecified Category: Medical Plan: Avoid fried foods, chicken skin, eggs, butter margarine, pastries and meat. Be it pork or beef they have a lot of cholesterol on simvastatin LDL goal of less than 100 and triglyceride of less than 150 July blood work (3) Generalized anxiety disorder: Code(s): F41.1 - Generalized anxiety disorder Category: Medical Plan: Continue with hydroxyzine and fluoxetine (4) LFT elevation: Code(s): R79.89 - Other specified abnormal findings of blood chemistry Category: Medical Plan History of Present Illness The patient is a 39-year-old transgender male presenting with concerns related to the management of his chronic medical conditions, namely Type 2 Diabetes Mellitus, Hypercholesterolemia, and Generalized Anxiety Disorder. He also underwent surgical procedures last year impacting hormonal balance and is experiencing menopause-like symptoms. Historically, the patient's diabetes has been managed with Metformin 500 mg twice daily, achieving a HbA1c of 6.5% in previous readings. Recent laboratory tests in July 2024 indicated a fasting blood sugar of 119 mg/dL and a HbA1c of 6.9%, signifying a slight increase. Attempts to increase the Metformin dosage resulted in nausea. Consequently, a new medication, Jardiance, was proposed to assist with glycemic control. The patient?s lipid profile is managed on Simvastatin, targeting an LDL goal of less than 100 mg/dL and triglycerides of less than 150 mg/dL, with a current LDL level of 87 mg/dL. In terms of anxiety, the patient continues on Hydroxyzine and Fluoxetine. Additionally, he has a known history of mild anemia and leukopenia, with stable blood counts noted except for slight leukopenia. Concerning new onset menopause-like symptoms, the patient reports episodes of feeling hot, which he attributes to the cessation of estrogen production post- surgery, confirmed by the absence of estrogen sources since the surgery last year. Liver function tests revealed elevated enzymes, though the patient denies significant alcohol consumption, raising concerns about potential fatty liver disease. An ultrasound is planned for further evaluation. Health Maintenance - Continued management of diabetes with Metformin and newly prescribed Jardiance. - Lipid management on Simvastatin targeting specific lipid goals. - Regular follow-up with endocrinology. - Scheduled ultrasound to evaluate elevated liver enzymes. - Up-to-date with vaccinations, including pneumococcal and tetanus vaccines. Recently received RSV, COVID, and flu shots. Social History - - Does not consume alcohol significantly - No current reports on exercise and diet discussed Review of Systems - General: Denies weight gain, reports feeling hot easily - Endocrine: Reports feeling hot due to menopause-like symptoms, history of surgery affecting hormone levels Physical Exam Results - Labs: Fasting blood sugar 119 mg/dL, HbA1c 6.9%, LDL 87 mg/dL, anemia with hemoglobin at 13.3, platelets normal, mild leukopenia noted - Scheduled diagnostic: Liver ultrasound Plan I have prescribed Jardiance to manage the patient's slightly elevated blood sugar levels after the patient experienced nausea with higher doses of Metformin. The patient will continue using Simvastatin for hypercholesterolemia since the current LDL levels are optimal. I have maintained the current psychiatric medications as the patient reports stability with anxiety managemen t. The ultrasound will provide further insight into the elevated liver function tests, which may indicate fatty liver disease or other liver-related issues. Menopause-like symptoms are expected post-surgery but will be monitored for any need for intervention. Patient was informed and verbally consented to the use of an ambient scribe for clinic note documentation during this visit. Discussion Notes I discussed with the patient the importance of controlling blood sugar levels and the rationale for adding Jardiance to his diabetes treatment regimen. The potential side effects, such as urinary tract infections, were explained, and the patient was advised to report any related symptoms. We reviewed the patient's lipid panel results, continuing his current medication regimen as his LDL is at the target level. Regarding anxiety, I confirmed the stability with current medications and mentioned there is no need for adjustment currently. Additionally, we discussed the elevated liver function tests and decided to obtain an ultrasound to investigate further. I explained that the hot flashes and menopause-like symptoms are common after his surgery due to the loss of estrogen, providing reassurance and agreeing to monitor his symptoms. Follow-up is planned in three months, where we will evaluate the effect of the new medication and revisit his treatment protocols. Patient Instructions - Begin taking Jardiance as prescribed - Continue current medications for cholesterol and anxiety - Monitor for symptoms of urinary tract infections - Attend scheduled ultrasound for liver evaluation - Maintain regular follow-up appointments - Note any changes in symptoms, particularly related to blood sugar or menopause-like hot flashes - Ensure an adequate water intake and balanced diet Medications: New empagliflozin (Jardiance) 10 mg PO DAILY 30 tabs 3RF E11.65 - Type 2 diabetes m ellitus with hyperglycemia
[2024-08-27 10:55] VITALS: BP 130/62; PULSE 96; TEMP 36.1; O2SAT 97; BMI 27.8
--- OUTSIDE RECORDS SUMMARY | 2024-08-27 12:31 | XMS_ITS | Clinical Summary ---
Author Organization [facility] Address [address] [place] [address] Care Team Providers Care Art Psychotherapist Or Therapist Name Role Phone Ashley Maldonado MD Primary Care Provider [phone] Social History Tobacco Use Types Packs/Day Years [...] age to complete this topic Care Teams Art Psychotherapist Or Therapist Relationship Specialty Start Date End Date Ashley Maldonado MD [address] [place] [address] [address] [facility] [place] [address] PCP - General Internal Medicine 11/25/20
--- OUTSIDE RECORDS SUMMARY | 2024-08-27 12:31 | XMS_ITS | Clinical Summary ---
Author Organization [facility] Address [address] [place] [address] Care Team Providers Care Jury Consultant Name Role Phone Ashley Maldonado MD Primary Care Provider [phone] Allergies No known active allergies Medications No [...] age to complete this topic Care Teams Jury Consultant Relationship Specialty Start Date End Date Po, Ashley Gilbert MD [address] [place] [address] [address] [facility] [place] [address] PCP - General Internal Medicine 11/25/20
== END 2024-08-27 12:03 | disposition home or self-care (01) ==
LOC: HO.HMCH 10:37
PROVIDERS: PCP Internal Medicine; Visit Provider Internal Medicine
DX: F64.0 Transsexualism (principal); E78.00 Pure hypercholesterolemia, unspecified; F41.1 Generalized anxiety disorder; R79.89 Other specified abnormal findings of blood chemistry

== ENCOUNTER 2024-09-11 07:36 | Outpatient (REF) | payer BC, SELFPAY ==
--- NOTE | ~2024-09-11 | US_ITS ---
EXAMINATION: US ABDOMEN COMPLETE CLINICAL INFORMATION: Abnormal findings on blood chemistry.. COMPARISON: April 16, 2009. TECHNIQUE: Real-time imaging of the abdominal viscera. FINDINGS: PANCREAS: No peripancreatic fluid collections. ABDOMINAL AORTA: The proximal, mid, and distal segments are normal in caliber. INFERIOR VENA CAVA: Visualized portions are normal. LIVER: Liver appears prominent. Increased echotexture. No nodular surface. No gross solid or cystic lesion. No intrahepatic biliary ductal dilatation. GALLBLADDER: Intraluminal hyperechoic lesions with the posterior shadowing layering in the dependent portion. There is a 1 cm mixed echotexture intraluminal abnormality. No pericholecystic fluid collection or gallbladder wall thickening. COMMON BILE DUCT: 3 mm. RIGHT KIDNEY: 10 cm. Normal echotexture. Normal renal cortical thickness. No hydronephrosis. No gross solid or cystic lesion. Normal flow on color Doppler interrogation of the renal hilum. LEFT KIDNEY: 10 cm. Normal echotexture. Normal renal cortical thickness. No hydronephrosis. Normal flow on color Doppler interrogation renal hilum. SPLEEN: 11 cm. FREE FLUID: None. US/US abdomen complete IMPRESSION: Cholelithiasis and likely biliary sludge. A 1 cm polyp cannot be entirely excluded. Hepatic steatosis. No hydronephrosis. No ascites. Electronically signed by: Gerald Ellsworth MD 09/11/2024 09:34 AM EDT
--- OUTSIDE RECORDS SUMMARY | 2024-09-11 07:39 | XMS_ITS | Clinical Summary ---
Author Organization [facility] Address [address] [place] [address] Care Team Providers Care Atmospheric Physics Professor Name Role Phone Ashley Maldonado MD Primary Care Provider [phone] Allergies No known active allergies Medications No [...] age to complete this topic Care Teams Atmospheric Physics Professor Relationship Specialty Start Date End Date Po, Ashley Gilbert MD [address] [place] [address] [address] [facility] [place] [address] PCP - General Internal Medicine 11/25/20
--- OUTSIDE RECORDS SUMMARY | 2024-09-11 07:39 | XMS_ITS | Clinical Summary ---
Author Organization [facility] Address [address] [place] [address] Care Team Providers Care Tractor Driver Name Role Phone Ashley Maldonado MD Primary Care Provider [phone] Social History Tobacco Use Types Packs/Day Years [...] Vaccine (2023-2 5 season) 2024 Influenza Vaccine (Season Ended) 2025 HIB Vaccines Aged Out No longer eligi [...] age to complete this topic Meningococcal B Vaccine Aged Out No l onger eligible based on patient's age to complete [...] age to complete this topic Care Teams Tractor Driver Relationship Specialty Start Date End Date Ashley Maldonado MD [address] [place] [address] [address] [facility] [place] [address] PCP - General Internal Medicine 11/25/20
== END 2024-09-11 07:37 | disposition home or self-care (01) ==
LOC: HO.US 07:36
PROVIDERS: PCP Internal Medicine; Visit Provider Internal Medicine
DX: R79.89 Other specified abnormal findings of blood chemistry (principal)
CPT/HCPCS: 76700

== ENCOUNTER → 2024-09-11 07:38 | Outpatient (BNV) | payer BC, SELFPAY | PROVIDERS: PCP Internal Medicine; Visit Provider Radiology Diagnostic Radiology | DX: K80.20 Calculus of gallbladder without cholecystitis without obstruction (principal); R74.01 Elevation of levels of liver transaminase levels | CPT/HCPCS: 76700 ==

== ENCOUNTER 2024-12-23 10:41 | Outpatient (AMB) | payer BC, SELFPAY ==
[2024-12-23 10:43] VITALS: BP 112/84; PULSE 84; RESP 18; TEMP 36.2; O2SAT 98; BMI 27.7
--- NOTE | 2024-12-23 10:43 | A.OFFPC_ITS ---
Vital Signs 12/23/24 10:43 Height 4 ft 10 in Weight 132 lb 8 oz BMI 27.7 BP 112/84 Blood Pressure Location Lt brachial Position Sitting Respiration 18 Pulse 84 Pulse Source Pulse Oximeter Temp 97.1 F Temp Source Temporal Artery Scan Pulse Oximetry (%) 98 Oxygen Delivery Method Room Air Intake Visit Reasons: DM Allergies empagliflozin (From Jardiance) Adverse Reaction (Intermediate, Unverified 12/23/24 11:05) vaginal irritation Medication List - Last Reconciled 12/23/24 by Ashley Maldonado MD cholecalciferol (vitamin D3) 50 mcg PO DAILY fluoxetine (Prozac) 20 mg PO DAILY hydroxyzine HCl 25 mg PO BEDTIME lisinopril 2.5 mg PO DAILY metformin 500 mg PO BIDWMEAL multivitamin 1 tab PO DAILY simvastatin 40 mg PO BEDTIME testosterone 10 mg/0.5 gram /actuation 2 pumps transdermal QAM Tobacco use date assessed: 12/23/24 Dental Screening Dental Screen Date: 12/23/24 Did you have a dental visit in the last 12 months?: Yes Did you have a dental problem in the last 6 months where you did not have access to dental care?: No Was dental information given to patient?: Patient has dentist [facility] Medical History Depression Type 2 diabetes mellitus with hyperglycemia Hypercholesterolemia Vitamin D deficiency Qlmuci-xo-kgea transgender person GERD (gastroesophageal reflux disease) Surgical History FH: JOELLE-BSO (total abdominal hysterectomy and bilateral salpingo-oophorectomy) History of breast surgery Family History Father Brain tumor Mother No problems noted. Maternal Grandmother Diabetes Maternal Grandfather Myocardial infarction Social History Housing: Apartment Alcohol intake: current Comment: once a month 1-2 drinks Patient Tobacco Use Status: Never used Tobacco e-Cigarette/Vaping Use: Never Used Second Hand Smoke Exposure: No service: No Current occupational status: employed Current occupational exposures/hazards: No Cognitive needs: No Hearing needs: No Vision needs: Yes (Glasses) Questionnaire PHQ-9 Over the last 2 weeks, how often have you been bothered by any of the following problems? 1. Little interest or pleasure in doing things: several days 2. Feeling down, depressed, or hopeless: several days 3. Trouble falling or staying asleep, or sleeping too much: several days 4. Feeling tired or having little energy: several days 5. Poor appetite or overeating: several days 6. Feeling bad about yourself - or that you are a failure or have let yourself or your family down: several days 7. Trouble concentrating on things, such as reading the newspaper or watching television: several days 8. Moving or speaking so slowly that other people could have noticed. Or the opposite - being so fidgety or restless that you have been moving around a lot more than usual: several days 9. Thoughts that you would be better off or of hurting yourself in some way: not at all Total score: 8 Source: Developed by Drs. Eliu Hinkle, Harmony Gutierrez, Asif Junior and colleagues, with an educational jose from [employer]. Thrive Questionnaire Date Thrive assessed: 06/18/24 I am a: Patient What is your living situation today?: I have a steady place to live Within the past 12 months, did the food you bought not last and you didn't have the money to get more?: Sometimes True Within the past 12 months, did you worry whether your food would run out before you got money to buy more?: Sometimes True Do you have trouble paying for medicines?: No Do you have trouble getting transportation to medical appointments?: No Do you have trouble paying your heating and electricity bill?: I choose not to answer this question Do you have trouble taking care of your child, family member or friend?: No Do you have trouble with day-to-day activities such as bathing, preparing meals, shopping, managing finances, etc.?: No Are you currently unemployed and looking for a job?: No Are you interested in more education?: Yes Please select the resources that you would like help with: None Currently or been in a relationship where the following occur: No concerns reported THRIVE Score: 2 AUDIT C Alcohol Use Questionnaire (AUDIT-C) 1. How often do you have a drink containing alcohol?: Monthly or less 2. How many drinks containing alcohol do you have on a typical day when you are drinking?: 1 or 2 3. How often do you have six or more drinks on one occasion?: Never Total Score: 1 PETE-7 AMB Questionnaire PETE-7 Date PETE - 7 assessed: 06/18/24 Feeling nervous, anxious, or on edge: 1 = Several days Not being able to stop or control worryin = Several days Worrying too much about different things: 1 = Several days Trouble relaxin = Several days Being so restless that it is hard to sit still: 1 = Several days Becoming easily annoyed or irritable: 1 = Several days Feeling afraid as if something awful might happen: 1 = Several days Total PETE-7 score (0-4 normal; 5-9 mild; 10-14 moderate; 15-21 severe): 7 Source: Developed by Drs. Eliu Hinkle, Harmony Gutierrez, Asif Junior and colleagues, with an educational jose from [employer]. Physical exam (Primary Care) Vital Signs: Last Vital Signs Temp 97.1 F 12/23/24 10:43 Pulse 84 12/23/24 10:43 Resp 18 12/23/24 10:43 BP 112/84 12/23/24 10:43 Pulse Ox 98 12/23/24 10:43 Oxygen Delivery Method Room Air 12/23/24 10:43 BMI result Body Mass Index 27.7 Tobacco/Smoking Status: Tobacco use Status Tobacco use date assessed 12/23/24 12/23/24 10:48 Patient Tobacco Use Status Never used Tobacco 12/23/24 10:48 e-Cigarette/Vaping Use Never Used 12/23/24 10:48 PHQ-9: PHQ-9 Score PHQ-9: Total score 8 12/23/24 11:00 Thrive Assessment: Date of Thrive Assessment Date Thrive assessed 06/18/24 12/23/24 10:48 Currently or been in a relationship where the following occur: No concerns reported Const General: alert; No acute distress Eyes Conjunctivae: conjunctivae normal Resp Auscultation: clear to auscultation bilaterally Cardio Rate: regular rate Rhythm: regular rhythm GI Inspection: Yes normal to inspection Extrem General: Yes normal to inspection and No edema Results AMB Hemoglobin A1c AMB Hemoglobin A1c 6.9 % Last Edit by Lisa Esquivel CMA on 12/23/24 10:52 Results Reviewed Results Reviewed: Laboratory Last Values Hgb A1c (Clinic) 6.9 % (4.0-6.0) H 12/23/24 10:48 Coding Level of Care Code Est Pt Level 4 (97668) Complex EM visit Add On G2211 Diagnoses Type 2 diabetes mellitus with hyperglycemia, without long-term current use of insulin E11.65 Diabetes mellitus fci insulin use: without fci use Hypercholesterolemia E78.00 Cholelithiasis K80.20 Hepatic steatosis K76.0 Kdylww-tl-eldx transgender person F64.0 Generalized anxiety disorder F41.1 Overweight (BMI 25.0-29.9) E66.3 Assessment & Plan Assessment & Plan (1) Type 2 diabetes mellitus with hyperglycemia: Comment: Armando 05/2023 Code(s): E11.65 - Type 2 diabetes mellitus with hyperglycemia Category: Medical Qualifiers: Diabetes mellitus termination clerk insulin use: without fci use Qualified Code(s): E11.65 - Type 2 diabetes mellitus with hyperglycemia Plan: Decrease the amount of carbohydrate intake, pasta, bread, rice and potatoes are all sugar and that is aside from all the sweet stuff, remember that fruits are good but they are Sweet also. Hemoglobin A1c goal of less than 6.5 patient is on Jardiance 10 mg once a day metformin 500 mg twice a day (2) Hypercholesterolemia: Code(s): E78.00 - Pure hypercholesterolemia, unspecified Category: Medical Plan: Avoid fried foods, chicken skin, eggs, butter margarine, pastries and meat. Be it pork or beef they have a lot of cholesterol LDL goal of less than 100 and triglyceride of less than 150 on simvastatin 40 mg at bedtime (3) Cholelithiasis: Comment: Augustholelithiasis and likely biliary sludge. A 1 cm polyp cannot be entirely excluded. Hepatic steatosis. No hydronephrosis. No ascites. Code(s): K80.20 - Calculus of gallbladder without cholecystitis without obstruction Category: Medical Plan: Low-fat diet (4) Hepatic steatosis: Comment: Augustholelithiasis and likely biliary sludge. A 1 cm polyp cannot be entirely excluded. Hepatic steatosis. No hydronephrosis. No ascites. Code(s): K76.0 - Fatty (change of) liver, not elsewhere classified Category: Medical Plan: Low-fat diet and exercise (5) Aivwav-wu-rsfy transgender person: Comment: [facility] testosterone 02/2016 TAHBSO 08/2023 Dr. Dhaliwal Code(s): F64.0 - Transsexualism Category: Social Hx Plan: Patient continues to follow-up with endocrinology on testosterone (6) Generalized anxiety disorder: Code(s): F41.1 - Generalized anxiety disorder Category: Medical Plan: Continue with hydroxyzine, fluoxetine (7) Overweight (BMI 25.0-29.9): Code(s): E66.3 - Overweight Category: Medical Plan: Diet and exercise Plan History of Present Illness The patient is a 39-year-old male presenting for a follow-up visit for management of chronic conditions including diabetes mellitus, generalized anxiety disorder, hepatic steatosis, and cholelithiasis. The patient has a history of gastroesophageal reflux disease (GERD) which has been ongoing for over a week. The patient has been diagnosed with diabetes mellitus and is currently on metformin 500 mg twice a day and Jardiance 10 mg once a day, although the latter was discontinued due to irritation. The hemoglobin A1c was 6.9 in July 2024, with a goal of less than 6.5. The patient is considering starting Trulicity, a once-a-week injection, to better manage blood glucose levels. The patient has generalized anxiety disorder and is currently taking hydroxyzine and fluoxetine. The patient reports that using marijuana has helped with anxiety and sleep, although there is a concern about the risks associated with smoking. The patient has hepatic steatosis and was advised to follow a low-fat diet and exercise regularly to manage the condition. An ultrasound in August showed cholelithiasis with a 1 cm polyp, and the patient was advised to monitor for any pain that could indicate complications. The patient was found to be mildly anemic in July 2024 with a hemoglobin level of 13.3. Other lab results showed elevated liver enzymes and a cholesterol LDL level of 87, with electrolytes and renal function within normal limits. Health Maintenance - Advised to follow a low-fat diet and exercise regularly to manage hepatic steatosis. - Discussed the importance of monitoring for pain related to cholelithiasis to prevent complications. Social History - Substance Use: Patient reports using marijuana to help with anxiety and sleep. - Exercise: Advised to maintain regular physical activity to manage hepatic steatosis. Review of Systems - Gastrointestinal: Reports gastroesophageal reflux disease symptoms for over a week. - Endocrine: Reports issues with diabetes medication causing irritation. - Psychiatric: Reports anxiety and improved sleep with marijuana use. Physical Exam Results - Labs: Hemoglobin A1c was 6.9 in July 2024. - Labs: Hemoglobin level was 13.3, indicating mild anemia. - Labs: Elevated liver enzymes noted. - Labs: Cholesterol LDL level was 87. - Imaging: Ultrasound in August showed cholelithiasis with a 1 cm polyp. Plan The patient will continue with metformin for diabetes management, and Trulicity will be initiated to improve glycemic control, pending insurance coverage. The patient was advised to discontinue Jardiance due to irritation and to monitor blood glucose levels closely. For generalized anxiety disorder, the patient will continue with hydroxyzine and fluoxetine, and was advised to consider alternatives to smoking marijuana due to associated cardiovascular risks. The patient was informed about the potential benefits of edibles over smoking. The patient was advised to maintain a low-fat diet and regular exercise to manage hepatic steatosis and to monitor for any symptoms indicative of gallbladder complications. Follow-up blood work will be scheduled to monitor liver function and anemia status. Patient was informed and verbally consented to the use of an ambient scribe for clinic note documentation during this visit. Discussion Notes I discussed with the patient the management of diabetes, including the discontinuation of Jardiance due to irritation and the initiation of Trulicity, pending insurance approval. We reviewed the risks associated with smoking mariju arline and the potential benefits of using edibles instead. I advised the patient on dietary and exercise modifications to manage hepatic steatosis and the importance of monitoring for gallbladder-related symptoms. Patient Instructions - Continue taking metformin as prescribed. - Start Trulicity once insurance coverage is confirmed. - Discontinue Jardiance due to irritation. - Consider using edibles instead of smoking marijuana. - Follow a low-fat diet and exercise regularly to manage hepatic steatosis. - Monitor for any pain related to gallbladder issues and report immediately. - Schedule follow-up blood work to monitor liver function and anemia. Orders: Orders AMB Hemoglobin A1c Today Z13.9 - Encounter for screening, unspecified Medications: New dulaglutide (Trulicity) 0.75 mg (0.5 mL) subcut QWEEK 2 mL 3RF E11.65 - Type 2 diabetes mellitus with hyperglycemia
--- OUTSIDE RECORDS SUMMARY | 2024-12-23 11:48 | XMS_ITS | Clinical Summary ---
Author Organization [facility] Address [address] [place] [id number] Phone Care Team Providers Care Call Center Dispatcher Name Role Phone Ashley Maldonado MD Primary Care Provider Social History Tobacco Use Types Packs/Day Years Used Date Smoking Tobacco: Never Assessed Child or Family Care Answer Date Record ed Do you have problems with on e of the following making it difficult for you to work, study, or receive health care? No 05/04/2023 Education Answer Date Recorded Are you interested in help w ith more adult education (for example, completing high school, GED, job training, learning the Armenian language, technical skills, or developing parenting skills)? No 05/04/2023 Are you concerned about learning? Not on file 05/04/2023 No 05/04/2023 Yes 05/04/2023 Food Answer Date Recorded Within the past 6 months we worried whether our food would run out before we got money to buy more. I choose not to answer 05/04/2023 Within the past 6 months the food we bought just didn't last and we didn't have enough money to get more. I choose not to answer 05/04/2023 Residential Stability Answer Date Recor ded What is your housing situation today? I have jonathan sing 05/04/2023 How many times have you move d in the past 12 months? Zero (I did not move) 05/04/2023 Paying for Meds Answer Date Recorded Do you have trouble paying for medicines? No 05/04/2023 Paying Utility Bills Answer Date Record ed Do you have trouble paying y our heating or electricity bill? I choose not to answer 05/04/2023 Transportation Answer Date Recorded Has the lack of transportati on kept you from medical appointments or from getting medications? No 05/04/2023 Unemployment Answer Date Recorded Are you currently unemployed or working on a part-time or temporary basis, and looking for work? No 05/04/2023 Digital Access Answer Date Recorded No 05/04/2023 Yes 05/04/2023 Do you have reliable internet access at home? Ye s 05/04/2023 Do you have a device (e.g., phone, tablet, computer) with a working camera? Yes 05/04/2023 Intimate Partner Violence Answer Date R ecorded Denied Basic Needs Not on file 05/04/2023 In the past 12 months have y ou been in a relationship with a person who hurts, threatens, or tries to control you? No 05/04/2023 Worried food would run out Not on file 05/04 In the past 12 months have y ou been in a relationship with a person who hurts, threatens, or tries to control you? No 05/04/2023 Comments Unknown Sex and Gender Information Value Date Recorded Sex Assigned at Female 05/04/2023 5:25 PM EST Legal Sex Male 12:02 PM EST Gender Identity Male 04/13/2023 12:10 PM EST Sexual Orientation Choose not to disclose 2022 5:25 PM EST Plan of Treatment Health Maintenance Due Date Last Done Comments Adult Td,Tdap Booster 1986 LIPID PANEL 1986 SMOKING Hx and SMOKELESS TOBACCO SCREENING 1999 HEPATITIS C SCREENING 2004 HIV ONE-TIME SCREENING (18-6 5 YEARS) 2004 COVID-19 VACCINE (3 - 2023-2 5 season) 2024 05/24/2022, 06/15/2021 DEPRESSION SCREENING 05/04/2024 05/04/2023 HEPATITIS A VACCINES Aged Out No long er eligible based on patient's age to complete this topic HIB VACCINES Aged Out No longer eligi ble based on patient's age to complete this topic MENINGOCOCCAL VACCINES (ACWY) Aged Out No longer eligible based on patient's age to complete this topic MENINGOCOCCAL VACCINES (B) Aged Out N o longer eligible based on patient's age to complete this topic PNEUMOCOCCAL VACCINES (0-49 years) Aged Out No longer eligible b ased on patient's age to complete this topic Medical Devices Not on file Insurance [facility] Care Teams Call Center Dispatcher Relationship Specialty Start Date End Date Ashley Maldonado MD [address] [place] [address] PCP - General Internal Medicine 04/13/23 Additional Source Comments The information contained in this document represents components of the legal health record. It is not the complete legal health record.[facility]
--- OUTSIDE RECORDS SUMMARY | 2024-12-23 11:48 | XMS_ITS | Clinical Summary ---
Author Organization [facility] Address [address] [place] [address] Care Team Providers Care Guide Alpine Name Role Phone Ashley Maldonado MD Primary Care Provider [phone] Social History Tobacco Use Types Packs/Day Years [...] Vaccine ( - 2023-2 5 season) 2024 Depression Screening 05/28/2024 Influenza Vaccine (#1) 2025 HIB Vaccines Aged Out No longer [...] 5 Years) and At-Risk Patients (6 to 49 Years) Aged Out No longer eligible b ased on patient's age to complete this topic RSV Immunization Patients Un caden 20 months Aged Out No longer eligible b ased on patient's age to complete this topic Varicella Vaccines Aged Out No longer eligible based on patient's age to complete this topic Care Teams Guide Alpine Relationship Specialty Start Date End Date Ashley Maldonado MD [address] [place] [address] [address] [facility] [place] [address] PCP - General Internal Medicine 11/25/20
--- OUTSIDE RECORDS SUMMARY | 2024-12-23 11:48 | XMS_ITS | Clinical Summary ---
Author Organization [facility] Address [address] [place] [address] Care Team Providers Care Activity Manager Name Role Phone Ashley Maldonado MD Primary Care Provider [phone] Allergies No known active allergies Medications No [...] 72 11/25/2020 10:04 PM EDT Temperature 36.8 C (98.2 F) 11/25/2020 10:04 PM EDT Respiratory Rate 18 11/25/2020 10:04 PM EDT [...] (1 - Tdap) 2005 Influenza Vaccine (#1) 2025 Pneumococcal Vaccine Aged Out No long er eligible based on patient's age to complete this topic RSV Ped < 20 months Aged Out No longe r eligible based on patient's age to complete this topic Care Teams Activity Manager Relationship Specialty Start Date End Date Ashley Maldonado MD [address] [place] [address] [address] [facility] [place] [address] PCP - General Internal Medicine 11/25/20
== END 2024-12-23 11:12 | disposition home or self-care (01) ==
LOC: HO.HMCH 10:41
PROVIDERS: PCP Internal Medicine; Visit Provider Internal Medicine
DX: E11.65 Type 2 diabetes mellitus with hyperglycemia (principal); E78.00 Pure hypercholesterolemia, unspecified; K80.20 Calculus of gallbladder without cholecystitis without obstruction; K76.0 Fatty (change of) liver, not elsewhere classified; F64.0 Transsexualism; F41.1 Generalized anxiety disorder; E66.3 Overweight; Z13.9 Encounter for screening, unspecified

== ENCOUNTER → 2024-12-23 10:41 | Outpatient (BNVA) | payer BC, SELFPAY | PROVIDERS: PCP Internal Medicine; Visit Provider Internal Medicine | DX: E11.65 Type 2 diabetes mellitus with hyperglycemia (principal); E78.00 Pure hypercholesterolemia, unspecified; K80.20 Calculus of gallbladder without cholecystitis without obstruction; K76.0 Fatty (change of) liver, not elsewhere classified; F64.0 Transsexualism; F41.1 Generalized anxiety disorder; E66.3 Overweight; Z68.27 Body mass index [BMI] 27.0-27.9, adult; Z79.84 Long term (current) use of oral hypoglycemic drugs; Z13.30 Encounter for screening examination for mental health and behavioral disorders, unspecified | CPT/HCPCS: 83036; 96127 ==

== ENCOUNTER 2025-02-19 10:06 | Outpatient (AMB) | payer BC, SELFPAY ==
--- NOTE | 2025-02-19 10:17 | A.OFFPC_ITS ---
Vital Signs 02/19/25 10:18 Height 4 ft 10 in Weight 130 lb BMI 27.2 BP 104/62 Blood Pressure Location Lt brachial Position Sitting Pulse 83 Pulse Source Pulse Oximeter Pulse Oximetry (%) 98 Oxygen Delivery Method Room Air Intake Visit Reasons: Annual Exam Allergies empagliflozin (From [employer]) Adverse Reaction (Intermediate, Verified 02/19/25 10:18) vaginal irritation Medication List - Last Reconciled 02/19/25 by Ashley Maldonado MD cholecalciferol (vitamin D3) 50 mcg PO DAILY dulaglutide (Trulicity) 0.75 mg (0.5 mL) subcut QWEEK fluoxetine (Prozac) 20 mg PO DAILY hydroxyzine HCl 25 mg PO BEDTIME lisinopril 2.5 mg PO DAILY metformin 500 mg PO BID multivitamin 1 tab PO DAILY simvastatin 40 mg PO BEDTIME testosterone 10 mg/0.5 gram /actuation 2 pumps transdermal QAM Tobacco use date assessed: 12/23/24 Dental Screening Dental Screen Date: 12/23/24 [facility] Medical History Depression Type 2 diabetes mellitus with hyperglycemia Hypercholesterolemia Vitamin D deficiency Gzlhsp-mm-dvhc transgender person GERD (gastroesophageal reflux disease) Surgical History FH: JOELLE-BSO (total abdominal hysterectomy and bilateral salpingo-oophorectomy) History of breast surgery Family History Father Brain tumor Mother No problems noted. Maternal Grandmother Diabetes Maternal Grandfather Myocardial infarction Social History (Updated 02/19/25 @ 10:59 by Ashley Maldonado MD) Housing: Apartment Alcohol intake: current Comment: once a month 1-2 drinks, last drink 05/2024 Patient Tobacco Use Status: Never used Tobacco Tobacco use type: Cigarette e-Cigarette/Vaping Use: Never Used Second Hand Smoke Exposure: No service: No Current occupational status: employed Current occupational exposures/hazards: No Cognitive needs: No Hearing needs: No Vision needs: Yes (Glasses) Questionnaire PHQ-9 Over the last 2 weeks, how often have you been bothered by any of the following problems? 1. Little interest or pleasure in doing things: several days 2. Feeling down, depressed, or hopeless: several days 3. Trouble falling or staying asleep, or sleeping too much: several days 4. Feeling tired or having little energy: several days 5. Poor appetite or overeating: several days 6. Feeling bad about yourself - or that you are a failure or have let yourself or your family down: several days 7. Trouble concentrating on things, such as reading the newspaper or watching television: several days 8. Moving or speaking so slowly that other people could have noticed. Or the opposite - being so fidgety or restless that you have been moving around a lot more than usual: several days 9. Thoughts that you would be better off or of hurting yourself in some way: not at all Total score: 8 Depression Screening Interpretation: Positive Depression Screening Done: Yes Source: Developed by Drs. Eliu Hinkle, Harmony Gutierrez, Asif Junior and colleagues, with an educational jose from [employer] Thrive Questionnaire Date Thrive assessed: 12/23/24 I am a: Patient What is your living situation today?: I have a steady place to live Within the past 12 months, did the food you bought not last and you didn't have the money to get more?: Sometimes True Within the past 12 months, did you worry whether your food would run out before you got money to buy more?: Sometimes True Do you have trouble paying for medicines?: No Do you have trouble getting transportation to medical appointments?: No Do you have trouble paying your heating and electricity bill?: I choose not to answer this question Do you have trouble taking care of your child, family member or friend?: No Do you have trouble with day-to-day activities such as bathing, preparing meals, shopping, managing finances, etc.?: No Are you currently unemployed and looking for a job?: No Are you interested in more education?: Yes Please select the resources that you would like help with: None Currently or been in a relationship where the following occur: No concerns reported THRIVE Score: 2 PETE-7 AMB Questionnaire PETE-7 Date PETE - 7 assessed: 06/18/24 Source: Developed by Drs. Eliu Hinkle, Harmony Gutierrez, Asif Junior and colleagues, with an educational jose from [employer] Review of Systems Const Denies poor appetite and Denies weakness Eyes Denies no additional complaints ENT Reports Normal hearing present, Denies dizziness, Denies nasal congestion, Denies tinnitus and Denies sore throat Card Denies chest pain, Denies syncope, Denies rapid heart rate and Denies dyspnea Resp Denies cough and Denies dyspnea GI Denies change in stool character, Reports constipation, Denies diarrhea, Denies nausea and Denies vomiting Denies dysuria and Denies urinary frequency Neuro Reports Normal hearing present, Denies confusion, Denies dizziness, Denies syncope and Denies weakness Psych Denies confusion Physical exam (Primary Care) Vital Signs: Last Vital Signs Pulse 83 02/19/25 10:18 BP 104/62 02/19/25 10:18 Pulse Ox 98 02/19/25 10:18 Oxygen Delivery Method Room Air 02/19/25 10:18 BMI result Body Mass Index 27.2 Tobacco/Smoking Status: Tobacco use Status Tobacco use date assessed 12/23/24 02/19/25 10:19 Patient Tobacco Use Status Never used Tobacco 02/19/25 10:59 Tobacco use type Cigarette 02/19/25 10:59 e-Cigarette/Vaping Use Never Used 02/19/25 10:59 PHQ-9: PHQ-9 Score PHQ-9: Total score 8 02/19/25 10:54 Depression Screening Interpretation: Positive Thrive Assessment: Date of Thrive Assessment Date Thrive assessed 12/23/24 02/19/25 10:19 Currently or been in a relationship where the following occur: No concerns reported Const General: No confusion Orientation/consciousness: No confusion HENMT Head: Yes normocephalic Ears: external ears normal and TM's normal bilaterally Face and sinus: Yes normal facial exam Mouth: moist mucous membranes Throat: Yes tonsils normal Eyes Conjunctivae: conjunctivae normal Pupils: Equal, round and reactive pupils present and Pupil accommodation reflex normal Direct Ophthalmoscopy: normal light reflex Neck Neck: No lymphadenopathy Thyroid: Thyroid normal Chest Chest palpation & inspection: normal inspection of the chest Resp Effort & Inspection: normal respiratory effort and no audible wheezes Auscultation: clear to auscultation bilaterally, no crackles, no wheezes and lung sounds not diminished Cardio Rate: regular rate Rhythm: regular rhythm Peripheral pulses: radial pulses present and dorsalis pedis present GI Other: pedal pulse and pin prick normal Palpation (GI): no masses Auscultation: normal bowel sounds and normoactive bowel sounds Skin General skin exam: no rashes or lesions noted Rashes: no rashes Neuro General: No confusion Cranial nerves: Yes Equal, round and reactive pupils present and Yes Normal hearing present Cognition (Neuro): normal cognition Gait exam (Neuro): Normal gait present Motor exam (neuro): 5/5 motor strength present throughout Deep tendon reflexes (DTR's): Right brachioradialis reflex intensity grade: 2+, Left brachioradialis reflex intensity grade: 2+, Right patellar reflex intensity grade: 2+ and Left patellar reflex intensity grade: 2+ Extrem General: No edema Coding Level of Care Code Est Pt Prev Care 18-39y(75602) Diagnoses Annual physical exam Z00.00 Shmhxw-tc-kxip transgender person F64.0 Type 2 diabetes mellitus with hyperglycemia, without long-term current use of insulin E11.65 Diabetes mellitus longterm insulin use: without longterm use Hypercholesterolemia E78.00 Overweight (BMI 25.0-29.9) E66.3 Gastroesophageal reflux disease without esophagitis K21.9 Esophagitis presence: without esophagitis Hepatic steatosis K76.0 Cholelithiasis K80.20 Generalized anxiety disorder F41.1 Assessment & Plan Assessment & Plan (1) Annual physical exam: Code(s): Z00.00 - Encounter for general adult medical examination without abnormal findings Category: Medical Plan: Patient is advised to eat healthy, keep well hydrated, keep active and have adequate sleep. (2) Kfdnqn-jz-gyoa transgender person: Comment: [facility] Endocrinology testosterone 02/2016 RAJIV 08/2023 Dr. Dhaliwal Code(s): F64.0 - Transsexualism Category: Social Hx Plan: Continue to follow-up with endocrinology. (3) Type 2 diabetes mellitus with hyperglycemia: Comment: Armando 05/2023 Code(s): E11.65 - Type 2 diabetes mellitus with hyperglycemia Category: Medical Qualifiers: Diabetes mellitus longterm insulin use: without remote computer terminal operator use Qualified Code(s): E11.65 - Type 2 diabetes mellitus with hyperglycemia Plan: Decrease the amount of carbohydrate intake, pasta, bread, rice and potatoes are all sugar and that is aside from all the sweet stuff, remember that fruits are good but they are Sweet also. Hemoglobin A1c goal of less than 6.5 patient is on Trulicity 0.75 mg once a week metformin 500 mg twice a day (4) Hypercholesterolemia: Code(s): E78.00 - Pure hypercholesterolemia, unspecified Category: Medical Plan: Avoid fried foods, chicken skin, eggs, butter margarine, pastries and meat. Be it pork or beef they have a lot of cholesterol LDL goal of less than 100 and triglyceride of less than 150 on simvastatin 40 mg once a day (5) Overweight (BMI 25.0-29.9): Code(s): E66.3 - Overweight Category: Medical Plan: Diet and exercise (6) GERD (gastroesophageal reflux disease): Code(s): K21.9 - Gastro-esophageal reflux disease without esophagitis Category: Medical Qualifiers: Esophagitis presence: without esophagitis Qualified Code(s): K21.9 - Gastro-esophageal reflux disease without esophagitis Plan: Avoid the foods that causes that usually spicy foods, tomato products, juices, coffee, soda and foods that your sensitive to. After eating do not lie down, allow 3-4 hours before in lie down. And keep the head of bed above 30 degrees to avoid the acid from going up. (7) Hepatic steatosis: Comment: Augustholelithiasis and likely biliary sludge. A 1 cm polyp cannot be entirely excluded. Hepatic steatosis. No hydronephrosis. No ascites. Code(s): K76.0 - Fatty (change of) liver, not elsewhere classified Category: Medical Plan: Low-fat diet and exercise (8) Cholelithiasis: Comment: Augustholelithiasis and likely biliary sludge. A 1 cm polyp cannot be entirely excluded. Hepatic steatosis. No hydronephrosis. No ascites. Code(s): K80.20 - Calculus of gallbladder without cholecystitis without obstruction Category: Medical Plan: Low-fat diet discussed about the location of the gallbladder and pain (9) Generalized anxiety disorder: Code(s): F41.1 - Generalized anxiety disorder Category: Medical Plan History of Present Illness The patient is a 39-year-old Transgender male presenting for an annual physical examination. The patient has a history of diabetes mellitus, with the last hemoglobin A1c recorded at 6.9% in November. He is currently on Trulicity 0.75 mg weekly and metformin 500 mg twice daily, aiming for an A1c goal of less than 6.5%. The patient also has hypercholesterolemia, with an LDL goal of less than 100 mg/dL and triglycerides less than 150 mg/dL. He is on simvastatin 40 mg daily and advised to maintain a diet and exercise regimen. The patient reports a history of generalized anxiety disorder and is currently taking fluoxetine 20 mg daily and hydroxyzine 25 mg as needed. The patient has hepatic steatosis and cholelithiasis, with gallbladder stones identified on ultrasound. He is advised to follow a low-fat diet to manage these conditions. The patient has mild anemia, with the last blood work showing hemoglobin at 13.3 g/dL and hematocrit at 38.7%. Family history includes a grandfather with a heart attack and a father with a brain tumor. Social history reveals occasional alcohol consumption, last noted on , and use of both smoked and edible marijuana. Health Maintenance - Vaccinations: Discussed flu and COVID-19 vaccinations, recommended for February - Lifestyle: Emphasized importance of hydration, healthy diet, and regular exercise - Substance Use: Advised to prefer edibles over smoking marijuana to reduce cardiovascular risk Social History - Alcohol: Occasional consumption, last on - Marijuana: Uses both smoked and edible forms Review of Systems - General: Denies fever, dizziness, or nausea - Cardiovascular: Denies chest pain or palpitations - Respiratory: Denies dyspnea or cough - Gastrointestinal: Denies heartburn, constipation, or dysphagia - Genitourinary: Reports nocturia once per night - Neurological: Denies syncope or headaches Physical Exam General: Cooperative, healthy appearing, comfortable, no acute distress and well developed Orientation: Patient oriented x3 Limitations: No limitations Head: Normal to inspection Ears: Hearing grossly normal bilaterally, some earwax present but not obstructive Nose: Normal external nose present Face and sinus: Normal facial exam Eyes: Appearance normal, both eyes and all related structures Neck: Normal visual inspection and Yes full ROM Respiratory: Normal respiratory effort and able to speak in complete sentences. Clear to auscultation bilaterally Cardiovascular: Regular rate and rhythm. Normal S1 and S2 GI: Normal to inspection. Soft to palpation and nontender, gallbladder stones present Skin: No rashes or lesions noted Neuro: Patient oriented x3 Extremities: Normal to inspection Results - Labs: Hemoglobin A1c 6.9% (November), hemoglobin 13.3 g/dL, hematocrit 38.7% - Imaging: Ultrasound showed gallbladder stones Plan Patient was informed and verbally consented to the use of an ambient scribe for clinic note documentation during this visit. 1. Diabetes Mellitus The patient is managing diabetes mellitus with Trulicity 0.75 mg weekly and metformin 500 mg twice daily, aiming for a hemoglobin A1c goal of less than 6.5%. The current A1c is 6.9%, and the patient reports reduced appetite since starting Trulicity, which may aid in achieving the target A1c. 2. Hypercholesterolemia The patient is on simvastatin 40 mg daily with an LDL goal of less than 100 mg/dL and triglycerides less than 150 mg/dL. Diet and exercise are emphasized as part of the management plan. 3. Generalized Anxiety Disorder The patient is managing generalized anxiety disorder with fluoxetine 20 mg daily and hydroxyzine 25 mg as needed. 4. Hepatic Steatosis And Cholelithiasis The patient has hepatic steatosis and cholelithiasis, with gallbladder stones identified on ultrasound. A low-fat diet is recommended to manage these conditions and prevent gallbladder attacks. 5. Mild Anemia The patient has mild anemia with hemoglobin at 13.3 g/dL and hematocrit at 38.7%. Discussion Notes During the visit, we discussed the management of diabetes mellitus with a focus on achieving a hemoglobin A1c goal of less than 6.5% using Trulicity and metformin. We also reviewed the importance of maintaining a low-fat diet to manage hepatic steatosis and cholelithiasis, and the potential need for surgical intervention if symptoms worsen. The patient was advised on the benefits of flu and COVID-19 vaccinations, and the importance of lifestyle modifications including diet and exercise. Patient Instructions - Continue taking Trulicity and metformin as prescribed to manage diabetes. - Maintain a low-fat diet to manage gallbladder stones and hepatic steatosis. - Schedule flu and COVID-19 vaccinations in February. - Engage in regular exercise and stay hydrated. - Prefer edible forms of marijuana to reduce cardiovascular risk.
[2025-02-19 10:18] VITALS: BP 104/62; PULSE 83; O2SAT 98; BMI 27.2
--- OUTSIDE RECORDS SUMMARY | 2025-02-19 12:14 | XMS_ITS | Clinical Summary ---
Author Organization [facility] Address [address] [place] [address] Care Team Providers Care Med Dir Name Role Phone Ashley Maldonado MD Primary Care Provider [phone] Allergies No known active allergies Medications No [...] age to complete this topic Care Teams Med Dir Relationship Specialty Start Date End Date Ashley Maldonado MD [address] [place] [address] [address] [facility] [place] [address] PCP - General Internal Medicine 11/25/20
--- OUTSIDE RECORDS SUMMARY | 2025-02-19 12:14 | XMS_ITS | Clinical Summary ---
[facility] Organization [facility] Address [address] [place] [address] Care Team Providers Care Advertising Associate Name Role Phone Ashley Maldonado MD Primary Care Provider [phone] Social History Tobacco Use Types Packs/Day Years [...] of 3 - 19+ 3-dose series) 2005 Depression Screening 05/28/2024 COVID-19 Vaccine (1 - 2023-2 5 season) 2025 Influenza Vaccine (#1) 2025 HIB Vaccines Aged [...] age to complete this topic Care Teams Advertising Associate Relationship Specialty Start Date End Date Ashley Maldonado MD [address] [place] [address] [address] [facility] [place] [address] PCP - General Internal Medicine 11/25/20
--- OUTSIDE RECORDS SUMMARY | 2025-02-19 12:14 | XMS_ITS | Clinical Summary ---
Author Organization [facility] Address [address] [place] [id number] Phone Care Team Providers Care Junior Mechanical Engineer Name Role Phone Ashley Maldonado MD Primary Care Provider [phone] Social History Tobacco Use Types Packs/Day Years [...] high school, GED, job training, learning the [place] language, technical skills, or developing parenting skills)? [...] HIV ONE-TIME SCREENING (18-6 5 YEARS) 2004 DEPRESSION SCREENING 05/04/2024 05/04/2023 INFLUENZA VACCINE (#1) 2024 02/27/2023 COVID-19 VACCINE (3 2024-2 6 season) 2025 05/24/2022, 06/15/2021 HEPATITIS A VACCINES Aged Out No long [...] topic Medical Devices Not on file Insurance [facility] POS Care Teams Junior Mechanical Engineer Relationship Specialty Start Date End Date Ashley Maldonado MD [address] [place] [address] PCP - General Internal Medicine 04/13/23 Additional Source Comments The information contained in this document represents components of the legal health record. It is not the complete legal health record.[facility]
== END 2025-02-19 11:13 | disposition home or self-care (01) ==
LOC: HO.HMCH 10:07
PROVIDERS: PCP Internal Medicine; Visit Provider Internal Medicine
DX: Z00.00 Encounter for general adult medical examination without abnormal findings (principal); F64.0 Transsexualism; E11.65 Type 2 diabetes mellitus with hyperglycemia; E78.00 Pure hypercholesterolemia, unspecified; E66.3 Overweight; K21.9 Gastro-esophageal reflux disease without esophagitis; K76.0 Fatty (change of) liver, not elsewhere classified; K80.20 Calculus of gallbladder without cholecystitis without obstruction; F41.1 Generalized anxiety disorder